=== PATIENT | male | born 1930 | race Caucasian/White ===

== ENCOUNTER 2016-10-22 14:01 | Outpatient (CLI) | payer MEDICARE | END 2016-10-22 14:02 | disposition home or self-care (01) | DX: Z79.01 Long term (current) use of anticoagulants (principal); I72.4 Aneurysm of artery of lower extremity ==

== ENCOUNTER 2016-11-19 13:33 | Outpatient (CLI) | payer MEDICARE | END 2016-11-19 13:34 | disposition home or self-care (01) | DX: I72.4 Aneurysm of artery of lower extremity (principal); Z79.01 Long term (current) use of anticoagulants ==

== ENCOUNTER 2016-12-17 14:00 | Outpatient (CLI) | payer MEDICARE | END 2016-12-17 14:01 | disposition home or self-care (01) | DX: I72.4 Aneurysm of artery of lower extremity (principal); Z79.01 Long term (current) use of anticoagulants ==

== ENCOUNTER 2017-01-14 14:27 | Outpatient (CLI) | payer MEDICARE | END 2017-01-14 14:28 | DX: I72.4 Aneurysm of artery of lower extremity (principal); Z79.01 Long term (current) use of anticoagulants ==

== ENCOUNTER 2017-01-25 17:10 | Outpatient (CLI) | payer MEDICARE | END 2017-01-25 17:11 | disposition EMS.NT | DX: Z03.89 Encounter for observation for other suspected diseases and conditions ruled out (principal); W05.0XXA Fall from non-moving wheelchair, initial encounter; Y92.009 Unspecified place in unspecified non-institutional (private) residence as the place of occurrence of the external cause ==

== ENCOUNTER 2017-02-11 08:00 | Outpatient (CLI) | payer MEDICARE | END 2017-02-11 08:01 | DX: E11.9 Type 2 diabetes mellitus without complications (principal); Z79.01 Long term (current) use of anticoagulants; I72.4 Aneurysm of artery of lower extremity ==

== ENCOUNTER 2017-03-11 14:03 | Outpatient (CLI) | payer MEDICARE | END 2017-03-11 14:04 | disposition home or self-care (01) | LOC: LAB.F 14:03 | PROVIDERS: ATTEND Internal Medicine | DX: I72.4 Aneurysm of artery of lower extremity (principal); Z79.01 Long term (current) use of anticoagulants | CPT/HCPCS: 85610 ==

== ENCOUNTER 2017-03-18 11:00 | Outpatient (CLI) | payer MEDICARE | END 2017-03-18 11:01 | disposition home or self-care (01) | LOC: LAB.F 11:00 | PROVIDERS: ATTEND Internal Medicine | DX: I72.4 Aneurysm of artery of lower extremity (principal) | CPT/HCPCS: 85610 ==

== ENCOUNTER 2017-04-08 13:31 | Outpatient (CLI) | payer MEDICARE | END 2017-04-08 13:32 | disposition home or self-care (01) | LOC: LAB.F 13:31 | PROVIDERS: ATTEND Internal Medicine | DX: I72.4 Aneurysm of artery of lower extremity (principal) | CPT/HCPCS: 85610 ==

== ENCOUNTER 2017-04-22 13:55 | Outpatient (CLI) | payer MEDICARE ==
[2017-04-22 18:16] LABS: PT - PROTHROMBIN TIME 55.4 secs (9.9-12.6)
[2017-04-22 18:26] LABS: INR 4.8 (0.8-1.2)
== END 2017-04-22 13:56 | disposition home or self-care (01) ==
LOC: LAB.F 13:55
PROVIDERS: ATTEND Internal Medicine
DX: I72.4 Aneurysm of artery of lower extremity (principal)
CPT/HCPCS: 36415; 85610

== ENCOUNTER 2017-04-29 09:05 | Outpatient (CLI) | payer MEDICARE | END 2017-04-29 09:06 | disposition home or self-care (01) | LOC: LAB.F 09:05 | PROVIDERS: ATTEND Internal Medicine | DX: I72.4 Aneurysm of artery of lower extremity (principal) | CPT/HCPCS: 85610 ==

== ENCOUNTER 2017-05-06 09:52 | Outpatient (CLI) | payer MEDICARE | END 2017-05-06 09:53 | disposition home or self-care (01) | LOC: LAB.F 09:52 | PROVIDERS: ATTEND Internal Medicine | DX: I72.4 Aneurysm of artery of lower extremity (principal); Z79.01 Long term (current) use of anticoagulants | CPT/HCPCS: 85610 ==

== ENCOUNTER 2017-05-21 13:22 | Outpatient (CLI) | payer MEDICARE | END 2017-05-21 13:23 | disposition home or self-care (01) | LOC: LAB.F 13:22 | PROVIDERS: ATTEND Internal Medicine | DX: I73.9 Peripheral vascular disease, unspecified (principal); I72.4 Aneurysm of artery of lower extremity; Z79.01 Long term (current) use of anticoagulants | CPT/HCPCS: 85610 ==

== ENCOUNTER 2017-06-15 11:25 | Outpatient (CLI) | payer MEDICARE | END 2017-06-15 11:26 | disposition home or self-care (01) | LOC: LAB.S 11:25 | PROVIDERS: ATTEND Internal Medicine | DX: I73.9 Peripheral vascular disease, unspecified (principal) | CPT/HCPCS: 85610 ==

== ENCOUNTER 2017-06-29 11:25 | Outpatient (CLI) | payer MEDICARE | END 2017-06-29 11:26 | disposition home or self-care (01) | LOC: LAB.R 11:25 | PROVIDERS: ATTEND Internal Medicine | DX: I73.9 Peripheral vascular disease, unspecified (principal); Z79.01 Long term (current) use of anticoagulants; I72.4 Aneurysm of artery of lower extremity | CPT/HCPCS: 85610 ==

== ENCOUNTER 2017-07-13 10:13 | Outpatient (CLI) | payer MEDICARE | END 2017-07-13 10:14 | disposition home or self-care (01) | LOC: LAB.S 10:13 | PROVIDERS: ATTEND Internal Medicine | DX: I73.9 Peripheral vascular disease, unspecified (principal); Z79.01 Long term (current) use of anticoagulants; I72.4 Aneurysm of artery of lower extremity | CPT/HCPCS: 85610 ==

== ENCOUNTER 2017-08-10 10:54 | Outpatient (CLI) | payer MEDICARE | END 2017-08-10 10:55 | disposition home or self-care (01) | LOC: LAB.S 10:54 | PROVIDERS: ATTEND Internal Medicine | DX: I73.9 Peripheral vascular disease, unspecified (principal); Z79.01 Long term (current) use of anticoagulants; I72.4 Aneurysm of artery of lower extremity | CPT/HCPCS: 85610 ==

== ENCOUNTER 2017-08-31 10:57 | Outpatient (CLI) | payer MEDICARE | END 2017-08-31 10:58 | LOC: LAB.S 10:57 | PROVIDERS: ATTEND Internal Medicine | DX: I73.9 Peripheral vascular disease, unspecified (principal); Z79.01 Long term (current) use of anticoagulants; I72.4 Aneurysm of artery of lower extremity | CPT/HCPCS: 85610 ==

== ENCOUNTER 2017-09-01 10:51 | Outpatient (CLI) | payer MEDICARE | END 2017-09-01 10:52 | disposition critical access hospital (66) | LOC: EMS 10:51 | PROVIDERS: ATTEND Surgery | DX: R53.1 Weakness (principal) | CPT/HCPCS: A0425; A0427 ==

== ENCOUNTER 2017-09-01 11:30 | Inpatient (IN) | payer MEDICARE ==
[2017-09-01 12:28] LABS: BASOPHILS % (AUTO) 0.6 %; EOSINOPHILS % (AUTO) 0.4 %; HGB - HEMOGLOBIN 8.7 g/dL (14.0-18.0); LYMPHOCYTES # (AUTO) 0.9 10^3/uL (1.5-3.5); LYMPHOCYTES % (AUTO) 12.6 %; MEAN CORPUSCULAR HEMOGLOBIN 25.7 pg (27.0-31.0); MEAN CORPUSCULAR HGB CONC 31.2 g/dL (32.0-36.0); MEAN CORPUSCULAR VOLUME 82.4 fL (80.0-94.0); MEAN PLATELET VOLUME 7.6 fL (7.4-11.4); MONOCYTES # (AUTO) 0.4 10^3/uL (0.0-1.0); MONOCYTES % (AUTO) 6.1 %; NEUTROPHILS # (AUTO) 5.5 10^3/uL (1.5-6.6); NEUTROPHILS % (AUTO) 80.3 %; RED BLOOD COUNT 3.39 10^6/uL (4.70-6.10); RED CELL DISTRIBUTION WIDTH 16.2 % (12.0-15.0); UNCORRECTED WHITE BLOOD COUNT 6.9 x10^3/uL; WHITE BLOOD COUNT 6.9 x10^3/uL (4.8-10.8)
[2017-09-01 12:37] LABS: ALBUMIN/GLOBULIN RATIO 1.1 (1.0-2.2); BILIRUBIN,TOTAL 0.3 mg/dL (0.2-1.0); CALCIUM 9.1 mg/dL (8.5-10.3); CREATININE 1.3 mg/dL (0.6-1.2); POTASSIUM 5.1 mmol/L (3.5-5.0); TOTAL PROTEIN 6.6 g/dL (6.7-8.2)
--- NOTE | 2017-09-01 13:06 | ED Physician Documentation ---
History of Present Illness - Stated complaint Stated Complaint: WEAKNESS - Chief complaint Chief Complaint: Neuro - Additonal information Additional information: hx from pt and mostly his 86 male hx CAD s/p CABP PVD s/p erika fem pop stents and toe amputations on coumadin usually unable to ambulate and uses an electric scooter but is up and active every day gradually over weeks but more acutely X last 5 days he has become several weak unable to even sit up unassisted also very soa with rapid breathing no fever + cough no MCDANIELS CP AP INR has been > 4 for 2 weeks now no bloody black BM dec urine output and urine has been cloudy POLST with pt DNR limited Review of Systems Constitutional: denies: Fever, Chills Throat: denies: Sore throat Cardiac: denies: Chest pain / pressure Respiratory: reports: Dyspnea, Cough GI: denies: Abdominal Pain PD PAST MEDICAL HISTORY - Past Medical History Past Medical History: Yes Cardiovascular: Hypertension, Coronary artery disease, Atrial fibrillation Endocrine/Autoimmune: Type 2 diabetes - Past Surgical History Past Surgical History: Yes Cardiovascular: CABG - Present Medications Home Medications: Ambulatory Orders Medication Instructions Recorded Confirmed Atorvastatin [Lipitor] 10 mg PO QPM 10/07/14 09/01/17 Docusate Sodium 250Mg Capsule 250 mg PO BID 10/07/14 09/01/17 [Colace] Losartan [Cozaar] 25 mg PO DAILY 10/07/14 09/01/17 Metformin HCl 500 mg PO QDBREAKFAST 10/07/14 09/01/17 Metoprolol Tartrate 25 mg PO BID 10/07/14 09/01/17 Morphine Sulfate [Morphine Sulfate 30 mg PO BID 10/07/14 09/01/17 Cr] Omeprazole 20 mg PO DAILY 10/07/14 09/01/17 Sulfamethoxazole/Trimethoprim 1 tab PO BID 10/07/14 09/01/17 [Bactrim Ds Tablet] Warfarin [Coumadin] 5 mg PO MOWEFR 10/07/14 09/01/17 Aspirin EC [Ecotrin] 325 mg PO DAILY 09/01/17 09/01/17 Multivitamin [Multivitamins] 1 each PO DAILY 09/01/17 09/01/17 Multivitamin [Theragran] 1 tab PO DAILY 09/01/17 09/01/17 Senna [Senokot] 17.2 mg PO DAILY 09/01/17 09/01/17 Warfarin [Coumadin] 2.5 mg PO SUTUTHSA 09/01/17 09/01/17 - Allergies Allergies/Adverse Reactions: Allergies Allergy/AdvReac Type Severity Reaction Status Date / Time hydrocodone Allergy Rash Verified 09/01/17 11:39 lisinopril Allergy Unknown Verified 09/01/17 11:39 oxycodone Allergy Rash Verified 09/01/17 11:39 Penicillins Allergy Rash Verified 09/01/17 11:39 - Social History Does the pt smoke?: No Smoking Status: Never smoker Does the pt drink ETOH?: No - POLST Patient has POLST: Yes PD ED PE NORMAL - Vitals Vital signs reviewed: Yes (low temp and sat) - General General: Alert and oriented X 3 - HEENT HEENT: PERRL, Other (pale) - Neck Neck: Supple, no meningeal sign - Cardiac Cardiac: RRR, Other (CABG scar) - Respiratory Respiratory: No respiratory distress, Other (shallow rapid) - Abdomen Abdomen: Soft, Non tender - Rectal Rectal: Other (brown stool very faintly heme +) - Derm Derm: Other (pale) - Extremities Extremities: No edema, Other (muliple toe amp, feet discolored but warm) - Neuro Neuro: Alert and oriented X 3 Results - Vitals Vitals: Vital Signs - 24 hr 09/01/17 09/01/17 09/01/17 11:37 12:01 12:45 Temperature 35.7 C L Heart Rate 85 77 78 Respiratory 15 16 Rate Blood Pressure 111/66 101/64 126/74 O2 Saturation 94 93 96 09/01/17 09/01/17 09/01/17 13:01 13:19 14:21 Temperature 35.6 C L 36.2 C L 36.0 C L Heart Rate 88 78 77 Respiratory 20 22 20 Rate Blood Pressure 102/73 101/63 102/70 O2 Saturation 87 L 100 99 09/01/17 09/01/17 15:25 15:51 Temperature Heart Rate 73 75 Respiratory 20 20 Rate Blood Pressure 106/82 H 100/68 O2 Saturation 95 Oxygen O2 Source Room air - EKG (time done) 1648 Rate: Rate (enter#) (82) Rhythm: NSR Intervals: RBBB Ischemia: ST depression (inf and lat suggestive of ischemia) - Labs Labs: Laboratory Tests 09/01/17 09/01/17 09/01/17 12:15 12:15 12:15 WBC 6.9 RBC 3.39 L Hgb 8.7 L Hct 28.0 L MCV 82.4 MCH 25.7 L MCHC 31.2 L RDW 16.2 H Plt Count 231 MPV 7.6 Neut # 5.5 Lymph # 0.9 L [place] # 0.4 Eos # 0.0 Baso # 0.0 Absolute Nucleated RBC 0.00 Nucleated RBC % 0.0 PT INR Sodium 134 L Potassium 5.1 H Chloride 98 L Carbon Dioxide 25 Anion Gap 11.0 BUN 31 H Creatinine 1.3 H Estimated GFR (MDRD) 52 L Glucose 151 H Lactic Acid Calcium 9.1 Total Bilirubin 0.3 AST 18 ALT 11 Alkaline Phosphatase 69 Troponin I 0.13 Total Protein 6.6 L Albumin 3.5 Globulin 3.1 Albumin/Globulin Ratio 1.1 Lipase 14 L Urine Color Urine Clarity Urine pH Ur Specific [place] Urine Protein Urine Glucose (UA) Urine Ketones Urine Occult Blood Urine Nitrite Urine Bilirubin Urine Urobilinogen Ur Leukocyte Esterase Urine RBC Urine WBC Ur Squamous Epith Cells Urine Crystals Amorphous Sediment Urine Bacteria Ur Microscopic Review Urine Culture Comments Blood Type Antibody Screen 09/01/17 09/01/17 09/01/17 12:15 13:45 13:45 WBC RBC Hgb Hct MCV MCH MCHC RDW Plt Count MPV Neut # Lymph # [place] # Eos # Baso # Absolute Nucleated RBC Nucleated RBC % PT 26.1 H INR 2.4 H Sodium Potassium Chloride Carbon Dioxide Anion Gap BUN Creatinine Estimated GFR (MDRD) Glucose Lactic Acid 1.2 Calcium Total Bilirubin AST ALT Alkaline Phosphatase Troponin I Total Protein Albumin Globulin Albumin/Globulin Ratio Lipase Urine Color Urine Clarity Urine pH Ur Specific [place] Urine Protein Urine Glucose (UA) Urine Ketones Urine Occult Blood Urine Nitrite Urine Bilirubin Urine Urobilinogen Ur Leukocyte Esterase Urine RBC Urine WBC Ur Squamous Epith Cells Urine Crystals Amorphous Sediment Urine Bacteria Ur Microscopic Review Urine Culture Comments Blood Type O POSITIVE Antibody Screen NEGATIVE 09/01/17 09/01/17 14:00 17:00 WBC RBC Hgb Hct MCV MCH MCHC RDW Plt Count MPV Neut # Lymph # [place] # Eos # Baso # Absolute Nucleated RBC Nucleated RBC % PT INR Sodium Potassium Chloride Carbon Dioxide Anion Gap BUN Creatinine Estimated GFR (MDRD) Glucose Lactic Acid Calcium Total Bilirubin AST ALT Alkaline Phosphatase Troponin I 0.14 Total Protein Albumin Globulin Albumin/Globulin Ratio Lipase Urine Color YELLOW Urine Clarity CLOUDY Urine pH 6.0 Ur Specific [place] >=1.030 H Urine Protein 30 H Urine Glucose (UA) NEGATIVE Urine Ketones NEGATIVE Urine Occult Blood NEGATIVE Urine Nitrite NEGATIVE Urine Bilirubin NEGATIVE Urine Urobilinogen 0.2 (NORMAL) Ur Leukocyte Esterase NEGATIVE Urine RBC None Seen Urine WBC 0-3 Ur Squamous Epith Cells FEW Squamous Urine Crystals >50 Ammonium Urate Amorphous Sediment Moderate Urine Bacteria Few Ur Microscopic Review INDICATED Urine Culture Comments NOT INDICATED Blood Type Antibody Screen PD MEDICAL DECISION MAKING - ED course ED course: elderly male with known CAD ot ER with weakness and soa and is anemic (new from 2016) and borderline trop and L pna on CXR, renal insuff not new will start ab, rectal exam, admit spoke to hospitalist at 420 labs etc ordered prior to my shift - trop was ordered but EKG was not done - prehospital EKG most c/w RBBB and slight ST depr inf lat - ordered EKG and it is abn with more sig inf lat ST depression than prehospital and no old EKG in EMR to compare - pt not having CP and SOA better now - ordered stat rpt trop - BP already low so no BB or nitro, on couamdin and anemic so no asa or heparin - rpt trop wtill WNL Departure - Departure Disposition: 66 [facility] DC/Xfer Clinical Impression: Elevated INR, Renal insufficiency, Abnormal EKG Pneumonia Qualifiers: Pneumonia type: due to unspecified organism Laterality: left Lung location: unspecified part of lung Qualified Code(s): J18.9 - Pneumonia, unspecified organism Anemia Qualifiers: Anemia type: unspecified type Qualified Code(s): D64.9 - Anemia, unspecified GI bleed Qualifiers: GI bleed type/associated pathology: unspecified gastrointestinal hemorrhage type Qualified Code(s): K92.2 - Gastrointestinal hemorrhage, unspecified Condition: Fair Discharge Date/Time: 09/01/17 17:49
--- NOTE | 2017-09-01 13:18 | XRAY Preliminary Report ---
Exam: XR CHEST 2 VIEW PA/LAT IMPRESSION: Technically suboptimal evaluation. Left pulmonary opacities and probable small pleural ef fusion. [facility] SITE ID: [id number]
--- NOTE | 2017-09-01 13:20 | XRAY Report ---
EXAM: CHEST RADIOGRAPHY EXAM DATE: 09/01/2017 12:48 PM. CLINICAL HISTORY: Weak and soa. COMPARISON: None. TECHNIQUE: 2 views. FINDINGS: Lungs/Pleura: Technically suboptimal evaluation. There is mild elevation of the left hemidiaphragm. P robable small left pleural effusion and associated basilar opacity. Left perihilar opacities. Bluntin g of the right costophrenic angle; no definite focal consolidation. No pneumothorax is demonstrated. Mediastinum: The cardiac silhouette is partially obscured but there is no gross enlargement. Other: Status post median sternotomy. IMPRESSION: Technically suboptimal evaluation. Left pulmonary opacities and probable small pleural ef fusion. [facility] Referring Provider Line: [phone] SITE ID: [id number]
[2017-09-01 14:06] LABS: INR 2.4 (0.8-1.2); PT - PROTHROMBIN TIME 26.1 secs (9.9-12.6)
[2017-09-01 14:12] LABS: BILIRUBIN,URINE NEGATIVE (NEGATIVE)
[2017-09-01 14:16] LABS: UA w/ MICROSCOPIC CHARGE YES
[2017-09-01 14:30] LABS: UR CULTURE IF IND NOT INDICATED; WBC,URINE 0-3 /HPF (0-3)
[2017-09-01] MEDS ORDERED: cefTRIAXone 1 GM in SODIUM CHLORIDE 0.9% MINIBAG 100 ML IV STA (14:44)
[2017-09-01] MEDS ORDERED: AZITHROMYCIN INJ 500 MG in SODIUM CHLORIDE 0.9% 250 ML IV STA (14:44)
[2017-09-01] MEDS ORDERED: cefTRIAXone 1 GM VIAL ONE (15:28)
[2017-09-01] MEDS ORDERED: SODIUM CHLORIDE FLUSH 0.9% 10 ML SYRINGE IVP PRN (18:49)
[2017-09-01] MEDS ORDERED: ZOLPIDEM 5 MG TABLET PO PRN (18:49)
[2017-09-01] MEDS ORDERED: ACETAMINOPHEN 325 MG TABLET PO PRN (18:49)
[2017-09-01] MEDS ORDERED: LACTATED RINGERS 1,000 ML IV SCH (19:00)
[2017-09-01] MEDS: DOCUSATE SODIUM 250 MG CAPSULE PO SCH (21:31)
[2017-09-01] MEDS: SODIUM CHLORIDE FLUSH 0.9% 10 ML SYRINGE IVP SCH (21:31)
[2017-09-01] MEDS: ATORVASTATIN 10 MG TABLET PO SCH (21:31)
[2017-09-01] MEDS: METOPROLOL TARTRATE 50 MG TABLET PO SCH (21:31)
[2017-09-01] MEDS: FAMOTIDINE 20 MG TABLET PO SCH (21:31)
[2017-09-02] MEDS ORDERED: ONDANSETRON 4 MG/2 ML VIAL IVP PRN (02:58)
[2017-09-02 03:14] LABS: BASOPHILS % (AUTO) 0.6 %; EOSINOPHILS # (AUTO) 0.1 10^3/uL (0.0-0.7); EOSINOPHILS % (AUTO) 1.3 %; HCT - HEMATOCRIT 27.5 % (42.0-52.0); HGB - HEMOGLOBIN 8.9 g/dL (14.0-18.0); LYMPHOCYTES % (AUTO) 12.5 %; MEAN CORPUSCULAR HEMOGLOBIN 26.3 pg (27.0-31.0); MEAN CORPUSCULAR HGB CONC 32.3 g/dL (32.0-36.0); MEAN CORPUSCULAR VOLUME 81.5 fL (80.0-94.0); MEAN PLATELET VOLUME 7.8 fL (7.4-11.4); MONOCYTES # (AUTO) 0.6 10^3/uL (0.0-1.0); MONOCYTES % (AUTO) 7.1 %; NEUTROPHILS # (AUTO) 6.3 10^3/uL (1.5-6.6); NEUTROPHILS % (AUTO) 78.5 %; RED BLOOD COUNT 3.38 10^6/uL (4.70-6.10); RED CELL DISTRIBUTION WIDTH 16.4 % (12.0-15.0); UNCORRECTED WHITE BLOOD COUNT 8.1 x10^3/uL; WHITE BLOOD COUNT 8.1 x10^3/uL (4.8-10.8)
[2017-09-02 03:20] LABS: INR 2.1 (0.8-1.2); PT - PROTHROMBIN TIME 22.9 secs (9.9-12.6)
[2017-09-02 03:27] LABS: CALCIUM 8.9 mg/dL (8.5-10.3); CREATININE 1.4 mg/dL (0.6-1.2); MAGNESIUM 2.1 mg/dL (1.7-2.8); POTASSIUM 4.8 mmol/L (3.5-5.0)
--- NOTE | 2017-09-02 07:29 | XRAY Preliminary Report ---
Exam: XR CHEST 1 VIEW IMPRESSION: Findings are most suggestive of congestive heart failure with pulmonary edema and small p leural effusions. [facility] SITE ID: [id number]
--- NOTE | 2017-09-02 07:31 | XRAY Report ---
EXAM: CHEST RADIOGRAPHY EXAM DATE: 09/02/2017 07:17 AM. CLINICAL HISTORY: Sudden sob and cyanosis. COMPARISON: 09/01/2017. TECHNIQUE: 1 view. FINDINGS: Lungs/Pleura: Increased central reticular opacities and bibasilar hazy opacities compared to yesterda y. No pneumothorax. Mediastinum: The cardiac silhouette is mostly obscured. No evidence of gross change from prior. Other: Status post median sternotomy. IMPRESSION: Findings are most suggestive of congestive heart failure with pulmonary edema and small p leural effusions. [facility] Referring Provider Line: [phone] SITE ID: [id number]
[2017-09-02] MEDS: SODIUM CHLORIDE FLUSH 0.9% 10 ML SYRINGE IVP SCH ×3 (07:39→21:18)
--- NOTE | 2017-09-02 08:13 | CT Preliminary Report ---
Exam: CT HEAD W/O STROKE PROTOCOL IMPRESSION: Generalized age-related cortical atrophic changes without evidence of acute intracranial abnormality. [facility] SITE ID: [id number]
--- NOTE | 2017-09-02 08:15 | CT Report ---
EXAM: CT HEAD EXAM DATE: 09/02/2017 08:03 AM. CLINICAL HISTORY: Sudden aloc, cyanosis, on coumadin (increased risk of intracranial hemorrhage). COMPARISON: None. TECHNIQUE: Multiaxial CT images were obtained from the foramen magnum to the vertex. IV contrast: Non e. Reformats: Coronal. In accordance with CT protocol optimization, one or more of the following dose reduction techniques w ere utilized for this exam: automated exposure control, adjustment of mA and/or KV based on patient s ize, or use of iterative reconstructive technique. FINDINGS: Parenchyma: No intraparenchymal hemorrhage. No evidence of mass, midline shift, or CT findings of acu te infarction. Beverly-white differentiation is distinct. Diffuse chronic microangiopathic white matter changes are evident. Extraaxial Spaces: Normal for age. No subdural or epidural collections identified. Ventricles: The ventricles and cortical sulci are enlarged, consistent with age-related tissue loss. Sinuses and orbits: Imaged paranasal sinuses, orbits, and mastoids show no significant abnormality. Bones: No evidence of fracture or calvarial defect. Other: None. IMPRESSION: Generalized age-related cortical atrophic changes without evidence of acute intracranial abnormality. Critical Test: Results conveyed to Dr. Pickens by telephone at 0810 hours on 09/02/2017 in accordan ce with stroke protocol. [facility] Referring Provider Line: [phone] SITE ID: [id number]
[2017-09-02 08:38] LABS: BASOPHILS # (AUTO) 0.1 10^3/uL (0.0-0.1); BASOPHILS % (AUTO) 0.6 %; EOSINOPHILS # (AUTO) 0.1 10^3/uL (0.0-0.7); EOSINOPHILS % (AUTO) 0.6 %; HCT - HEMATOCRIT 29.1 % (42.0-52.0); HGB - HEMOGLOBIN 9.3 g/dL (14.0-18.0); LYMPHOCYTES # (AUTO) 1.2 10^3/uL (1.5-3.5); LYMPHOCYTES % (AUTO) 12.4 %; MEAN CORPUSCULAR HEMOGLOBIN 26.2 pg (27.0-31.0); MEAN CORPUSCULAR VOLUME 81.9 fL (80.0-94.0); MEAN PLATELET VOLUME 7.1 fL (7.4-11.4); MONOCYTES # (AUTO) 0.6 10^3/uL (0.0-1.0); MONOCYTES % (AUTO) 6.4 %; NEUTROPHILS # (AUTO) 7.5 10^3/uL (1.5-6.6); RED BLOOD COUNT 3.56 10^6/uL (4.70-6.10); RED CELL DISTRIBUTION WIDTH 16.4 % (12.0-15.0); UNCORRECTED WHITE BLOOD COUNT 9.4 x10^3/uL; WHITE BLOOD COUNT 9.4 x10^3/uL (4.8-10.8)
[2017-09-02 08:56] LABS: CREATININE 1.5 mg/dL (0.6-1.2); POTASSIUM 5.4 mmol/L (3.5-5.0)
[2017-09-02] MEDS ORDERED: SENNA 8.6 MG TABLET PO SCH (09:00)
[2017-09-02] MEDS ORDERED: cefTRIAXone 1 GM VIAL IVP SCH (09:00)
[2017-09-02] MEDS: DOCUSATE SODIUM 250 MG CAPSULE PO SCH ×2 (10:26→21:23)
[2017-09-02] MEDS: metFORMIN 500 MG TABLET PO SCH (10:27)
[2017-09-02] MEDS: MULTIVITAMIN TABLET PO SCH (10:27)
[2017-09-02] MEDS: ASPIRIN EC 325 MG TABLET PO SCH (10:27)
[2017-09-02] MEDS: FAMOTIDINE 20 MG TABLET PO SCH ×2 (10:28→21:23)
[2017-09-02] MEDS: POLYETHYLENE GLYCOL 3350 17 GM PACKET PO SCH (10:28)
[2017-09-02] MEDS: SENNA 8.6 MG TABLET PO SCH (10:28)
[2017-09-02] MEDS: METOPROLOL TARTRATE 50 MG TABLET PO SCH (10:29)
[2017-09-02] MEDS ORDERED: ZINC OXIDE 20% OINT 28.35 GM TUBE TOP ONE (10:44)
[2017-09-02] MEDS: SODIUM CHLORIDE 0.9% 1,000 ML IV SCH ×2 (12:43→19:14)
[2017-09-02] MEDS: cefTRIAXone 1 GM in SODIUM CHLORIDE 0.9% MINIBAG 100 ML IV SCH (14:50)
[2017-09-02] MEDS: WARFARIN 5 MG TABLET PO SCH (14:50)
--- NOTE | 2017-09-02 17:47 | PROVIDER PROGRESS NOTE ---
Assessment/Plan - Problem List (1) CAP (community acquired pneumonia) Qualifiers: Laterality: left Assessment/Plan: Continue with iv Ceftriaxone, a 7-10 day course of antibiotics is planned (2) Dehydration Assessment/Plan: The patient refused the iv fluids to be started upon admission. I explained to him yesterday evening, that iv hydration is not considered an aggressive management (which he does not desire, per his POLST), but he still refused it, stating he "did not want to mix iv and oral treatment". Overnight, he would not allow RN to start the iv hydration, even when she asked him for permission several times. I spoke to and son about this today, and they urge us to treat the dehydration. Will start iv fluids now. They also report that the patient likes [place] soda. I will allow this intake ad aria, since patient is cachectic and needs some calories as well. Follow lytes and BUN/creat. (3) ANDREW (acute kidney injury) Assessment/Plan: Worse BUN/creat since admission which is partly due to patient's refusal to get iv hydration. Today I will order a start of hydration and follow labs and urine output (4) Anemia Assessment/Plan: No BMs since admission. In ER the rectal exam had mildly Heme + stool. Will check B12, folate and Fe studies and replace if needed. (5) Altered mental status Assessment/Plan: CT of head showed a senescent brain but no acute stroke or bleed or mass effect. I suspect he may be confused and delusional due to infection and dehydration. Continue plan as above and follow neuro exam. (6) PVD (peripheral vascular disease) Assessment/Plan: His mottled feet, when pt was confused, suggest hypoperfusion. Despite no marked hypotension, hypoperfusion is suspected, likely due to dehydration. I will stop any antihypertensives that are ordered for CAD and PVD care, that are not absolutely necessary - Current Meds Current Meds: Current Medications Generic Name Dose Route Start Last Admin Trade Name Freq PRN Reason Stop Dose Admin Acetaminophen 650 mg 09/01/17 18:49 09/02/17 03:09 Tylenol PO 650 mg Q4HR PRN Administration Pain 1 to 4 Aspirin 325 mg 09/02/17 09:00 09/02/17 10:27 Ecotrin PO 325 mg DAILY GAGANDEEP Administration Atorvastatin Calcium 10 mg 09/01/17 21:00 09/01/17 21:31 Lipitor PO 10 mg QPM GAGANDEEP Administration Docusate Sodium 250 mg 09/01/17 21:00 09/02/17 10:26 Colace 250mg Capsule PO 250 mg BID GAGANDEEP Administration Famotidine 20 mg 09/01/17 21:00 09/02/17 10:28 Pepcid PO 20 mg BID GAGANDEEP Administration Ceftriaxone Sodium 1 gm/ 100 mls @ 200 mls/hr 09/02/17 15:00 09/02/17 15:54 Sodium Chloride IV Infused Q24H GAGANDEEP Infusion Sodium Chloride 1,000 mls @ 150 mls/hr 09/02/17 13:00 09/02/17 15:50 Normal Saline 0.9% IV 150 mls/hr .Q6H40M GAGANDEEP Infusion Metformin HCl 500 mg 09/02/17 08:00 09/02/17 10:27 Glucophage PO 500 mg QDBREAKFAST GAGANDEEP Administration Metoprolol Tartrate 25 mg 09/01/17 21:00 09/02/17 10:29 Lopressor PO 25 mg BID GAGANDEEP Administration Multivitamins 1 tab 09/02/17 09:00 09/02/17 10:27 Theragran PO 1 tab DAILY GAGANDEEP Administration Ondansetron HCl 4 mg 09/02/17 02:58 09/02/17 03:33 Zofran Inj IVP 4 mg Q6HR PRN Administration Nausea / Vomiting Polyethylene Glycol 17 gm 09/02/17 09:00 09/02/17 10:28 Miralax PO 17 gm DAILY GAGANDEEP Administration Senna 17.2 mg 09/02/17 09:00 09/02/17 10:28 Senokot PO 17.2 mg DAILY GAGANDEEP Administration Sodium Chloride 10 ml 09/01/17 22:00 09/02/17 14:24 Normal Saline Flush 0.9% IVP Not Given Q8HR GAGANDEEP Warfarin Sodium 5 mg 09/02/17 14:00 09/02/17 14:50 Coumadin PO 5 mg MoWeFr@1400 GAGANDEEP Administration - Lab Result Fish Bone Diagrams: 09/03/17 06:19 09/03/17 06:19 - Additional Planning My Orders: My Active Orders 09/01/17 18:49 Activity Orders [RC] Routine IO [RC] IOSHIFT Initiate Bowel Care Protocol [RC] .protocol Initiate Flu Vaccine Screening [RC] ONCE Initiate Line Care Protocol [RC] .protocol Initiate Personal Care Protoco [RC] .protocol Initiate Pneumonia Vaccine Scr [RC] ONCE Oxygen Therapy [RC] .PRN Vital Signs [RC] Q8HR Acetaminophen [Tylenol] 650 mg PO Q4HR PRN Sodium Chloride Flush 0.9% [Normal Saline Flush 0.9%] 10 ml IVP PRN PRN Zolpidem [Ambien] 5 mg PO QPM PRN Code Status [OTHERS] Routine Condition of Patient [OTHERS] Routine DVT Prophylaxis [OTHERS] Routine 09/01/17 18:51 IV Insert [RC] .ONCE 09/01/17 18:52 Telemetry- [RC] Routine 09/01/17 21:00 Atorvastatin [Lipitor] 10 mg PO QPM Docusate Sodium 250Mg Capsule [Colace 250Mg Capsule] 250 mg PO BID Famotidine [Pepcid] 20 mg PO BID Metoprolol Tartrate [Lopressor] 25 mg PO BID 09/01/17 22:00 Sodium Chloride Flush 0.9% [Normal Saline Flush 0.9%] 10 ml IVP Q8HR 09/02/17 08:00 metFORMIN [Glucophage] 500 mg PO QDBREAKFAST 09/02/17 09:00 Aspirin EC [Ecotrin] 325 mg PO DAILY Multivitamin [Theragran] 1 tab PO DAILY Polyethylene Glycol 3350 [Miralax] 17 gm PO DAILY Senna [Senokot] 17.2 mg PO DAILY 09/02/17 12:35 Miscellaenous Nursing Order [RC] QSHIFT 09/02/17 13:00 Sodium Chloride 0.9% [Normal Saline 0.9%] 1,000 ml IV 150 mls/hr 09/02/17 14:00 Warfarin [Coumadin] 5 mg PO MoWeFr@1400 09/02/17 15:00 cefTRIAXone [Rocephin] 1 gm Sodium Chloride 0.9% Minibag [Normal Saline 0.9% Minibag] 100 ml IV Q24H 09/03/17 05:00 BMP - BASIC METABOLIC PANEL [CHEM] DAILYLAB CBC - COMP BLD CT W/AUTO DIFF [HEME] DAILYLAB 09/03/17 14:00 Warfarin [Coumadin] 2.5 mg PO SuTuThSa@1400 09/04/17 05:00 BMP - BASIC METABOLIC PANEL [CHEM] DAILYLAB CBC - COMP BLD CT W/AUTO DIFF [HEME] DAILYLAB 09/05/17 05:00 BMP - BASIC METABOLIC PANEL [CHEM] DAILYLAB CBC - COMP BLD CT W/AUTO DIFF [HEME] DAILYLAB Subjective - Subjective Patient Reports: Resting Comfortably Nursing Reports: Other (This am Pt developed confusion, was staring, feel were cool and mottled and he was seen by Youth Teacher who ordered labs, EKG, imaging including CT head, stroke protocol) Objective Vital Signs: Vital Signs - 24 hr 09/01/17 09/01/17 09/01/17 17:46 18:26 21:09 Temperature 36.3 C L 36.2 C L Heart Rate 86 Heart Rate [ 81 84 Brachial] Respiratory 22 16 16 Rate Blood Pressure 102/63 Blood Pressure 101/61 102/59 L [Right Brachial artery] O2 Saturation 96 95 97 09/01/17 09/02/17 09/02/17 21:31 00:37 09:30 Temperature 36.4 C L 36.6 C Heart Rate Heart Rate [ 80 89 Brachial] Respiratory 16 18 Rate Blood Pressure 102/59 L Blood Pressure 113/59 L 101/58 L [Right Brachial artery] O2 Saturation 96 98 Oxygen O2 Source Nasal cannula I&O (Last 24 Hrs): Intake and Output Totals x24h 08/31/17 09/01/17 09/02/17 23:59 23:59 23:59 Intake Total 400 1280 Output Total 200 Balance 400 1080 General: Other (Sleeping and difficult to arouse (is OUZINKIE, per family)) HEENT: Other (Dry mucosa) Neck: No JVD Neuro: Non Focal Cardiovascular: Regular rate Respiratory: No respiratory distress Abdomen: Soft Extremities: No edema, Other (Tenting of skin present) - Results Results: Laboratory Results WBC 9.4 x10^3/uL (4.8-10.8) 09/02/17 08:35 RBC 3.56 10^6/uL (4.70-6.10) L 09/02/17 08:35 Hgb 9.3 g/dL (14.0-18.0) L 09/02/17 08:35 Hct 29.1 % (42.0-52.0) L 09/02/17 08:35 MCV 81.9 fL (80.0-94.0) 09/02/17 08:35 MCH 26.2 pg (27.0-31.0) L 09/02/17 08:35 MCHC 32.0 g/dL (32.0-36.0) 09/02/17 08:35 RDW 16.4 % (12.0-15.0) H 09/02/17 08:35 Plt Count 245 10^3/uL (130-450) 09/02/17 08:35 MPV 7.1 fL (7.4-11.4) L 09/02/17 08:35 Neut # 7.5 10^3/uL (1.5-6.6) H 09/02/17 08:35 Lymph # 1.2 10^3/uL (1.5-3.5) L 09/02/17 08:35 [place] # 0.6 10^3/uL (0.0-1.0) 09/02/17 08:35 Eos # 0.1 10^3/uL (0.0-0.7) 09/02/17 08:35 Baso # 0.1 10^3/uL (0.0-0.1) 09/02/17 08:35 Absolute Nucleated RBC 0.00 x10^3/uL 09/02/17 08:35 Nucleated RBC % 0.0 /100WBC 09/02/17 08:35 PT 22.9 secs (9.9-12.6) H 09/02/17 03:07 INR 2.1 (0.8-1.2) H 09/02/17 03:07 Sodium 131 mmol/L (135-145) L 09/02/17 08:35 Potassium 5.4 mmol/L (3.5-5.0) H 09/02/17 08:35 Chloride 96 mmol/L (101-111) L 09/02/17 08:35 Carbon Dioxide 24 mmol/L (21-32) 09/02/17 08:35 Anion Gap 11.0 (6-13) 09/02/17 08:35 BUN 37 mg/dL (6-20) H 09/02/17 08:35 Creatinine 1.5 mg/dL (0.6-1.2) H 09/02/17 08:35 Estimated GFR (MDRD) 44 (>89) L 09/02/17 08:35 Glucose 138 mg/dL (70-100) H 09/02/17 08:35 Lactic Acid 1.2 mmol/L (0.5-2.2) 09/02/17 08:35 Calcium 9.0 mg/dL (8.5-10.3) 09/02/17 08:35 Magnesium 2.1 mg/dL (1.7-2.8) 09/02/17 03:07 Total Bilirubin 0.3 mg/dL (0.2-1.0) 09/01/17 12:15 AST 18 IU/L (10-42) 09/01/17 12:15 ALT 11 IU/L (10-60) 09/01/17 12:15 Alkaline Phosphatase 69 IU/L (42-121) 09/01/17 12:15 Troponin I 0.17 ng/mL (<0.49) 09/02/17 08:35 Total Protein 6.6 g/dL (6.7-8.2) L 09/01/17 12:15 Albumin 3.5 g/dL (3.2-5.5) 09/01/17 12:15 Globulin 3.1 g/dL (2.1-4.2) 09/01/17 12:15 Albumin/Globulin Ratio 1.1 (1.0-2.2) 09/01/17 12:15 Lipase 14 U/L (22-51) L 09/01/17 12:15 Urine Color YELLOW 09/01/17 14:00 Urine Clarity CLOUDY (CLEAR) 09/01/17 14:00 Urine pH 6.0 PH (5.0-7.5) 09/01/17 14:00 Ur Specific [place] >=1.030 (1.002-1.030) H 09/01/17 14:00 Urine Protein 30 mg/dL (NEGATIVE) H 09/01/17 14:00 Urine Glucose (UA) NEGATIVE mg/dL (NEGATIVE) 09/01/17 14:00 Urine Ketones NEGATIVE mg/dL (NEGATIVE) 09/01/17 14:00 Urine Occult Blood NEGATIVE (NEGATIVE) 09/01/17 14:00 Urine Nitrite NEGATIVE (NEGATIVE) 09/01/17 14:00 Urine Bilirubin NEGATIVE (NEGATIVE) 09/01/17 14:00 Urine Urobilinogen 0.2 (NORMAL) E.U./dL (NORMAL) 09/01/17 14:00 Ur Leukocyte Esterase NEGATIVE (NEGATIVE) 09/01/17 14:00 Urine RBC None Seen /HPF (0-5) 09/01/17 14:00 Urine WBC 0-3 /HPF (0-3) 09/01/17 14:00 Ur Squamous Epith Cells FEW Squamous (<= Few) 09/01/17 14:00 Urine Crystals >50 Ammonium Urate /LPF 09/01/17 14:00 Amorphous Sediment Moderate /LPF 09/01/17 14:00 Urine Bacteria Few /HPF (None Seen) 09/01/17 14:00 Ur Microscopic Review INDICATED 09/01/17 14:00 Urine Culture Comments NOT INDICATED 09/01/17 14:00 Blood Type O POSITIVE 09/01/17 13:45 Antibody Screen NEGATIVE 09/01/17 13:45
[2017-09-02] MEDS: ATORVASTATIN 10 MG TABLET PO SCH (21:23)
[2017-09-02 23:30] LABS: VBG BASE EXCESS -6.8 mmol/L (-2 - +2); VBG OXYGEN SATURATION 68.3 % (60-80); VBG PH 7.218 (7.31-7.41); VBG TOTAL CO2 22.4 mmol/L (24-29)
[2017-09-03] MEDS ORDERED: FUROSEMIDE 20 MG/2 ML VIAL IVP ONE (00:09)
[2017-09-03] MEDS ORDERED: FUROSEMIDE 20 MG/2 ML VIAL IVP STA (00:12)
[2017-09-03] MEDS ORDERED: FUROSEMIDE 20 MG/2 ML VIAL IVP SCH (00:20)
[2017-09-03 00:47] LABS: ABG HCO3 23.3 mmol/L (22.0-26.0); ABG O2 DEVICE OXYMASK; ABG OXYGEN SATURATION 99 % (94-98); ABG PCO2 48 mmHg (34-45); ABG PH 7.31 (7.35-7.45); ABG PO2 143 mmHg (80-100); ABG SATURATION PULSE OXIMETRY% 100 %; ABG SITE OF DRAW RIGHT RADIAL; ABG TCO2 24.7 MMOL/L (21.0-29.0); ALLEN TEST POSITIVE
[2017-09-03] MEDS ORDERED: MIN OIL/DIMETHICON/COCONUT OIL 92 GM TUBE TOP PRN (04:26)
[2017-09-03] MEDS: SODIUM CHLORIDE FLUSH 0.9% 10 ML SYRINGE IVP SCH ×5 (06:22→17:43)
[2017-09-03 06:34] LABS: BASOPHILS % (AUTO) 0.8 %; EOSINOPHILS % (AUTO) 0.6 %; HCT - HEMATOCRIT 26.8 % (42.0-52.0); HGB - HEMOGLOBIN 8.4 g/dL (14.0-18.0); LYMPHOCYTES # (AUTO) 1.2 10^3/uL (1.5-3.5); MEAN CORPUSCULAR HGB CONC 31.3 g/dL (32.0-36.0); MEAN CORPUSCULAR VOLUME 83.1 fL (80.0-94.0); MEAN PLATELET VOLUME 7.9 fL (7.4-11.4); MONOCYTES # (AUTO) 0.5 10^3/uL (0.0-1.0); MONOCYTES % (AUTO) 7.6 %; NEUTROPHILS # (AUTO) 4.8 10^3/uL (1.5-6.6); NUCLEATED RED BLOOD CELLS AUTO 0.1 /100WBC; RED BLOOD COUNT 3.23 10^6/uL (4.70-6.10); RED CELL DISTRIBUTION WIDTH 16.4 % (12.0-15.0); UNCORRECTED WHITE BLOOD COUNT 6.6 x10^3/uL; WHITE BLOOD COUNT 6.6 x10^3/uL (4.8-10.8)
[2017-09-03 06:45] LABS: CALCIUM 8.4 mg/dL (8.5-10.3); CREATININE 1.9 mg/dL (0.6-1.2); POTASSIUM 5.3 mmol/L (3.5-5.0)
--- NOTE | 2017-09-03 07:29 | PROVIDER PROGRESS NOTE ---
Editor Newspaper Note - Editor Newspaper Note Editor Newspaper Note: This note was entered in the incorrect patient account and now brought over to this account. September 02, 2017 06: 5 4 Called to see patient by RN because of sudden slurred speech, and change in physical exam. He was admitted as GI bleed. He has a history of aortic valve repair. He is not on anticoagulation other than aspirin. He has been stable up until this morning when she went to do vitals. His feet are blue at the toes and instep. To touch his legs, feet, hands and face are quite cold. Speech is slurred, hesitant. So far he is normotensive, pulse is 93 but O2 sats are difficult to maintain. He is 88% on room air and is requiring O2. He denies any chest pain, shortness of breath. His only complaint is "I am cold". On examination he is a tall thin elderly white male, balding, confused to place and time. Cooperative. Voice is slightly slurred. Increased respiratory rate but no use of accessory muscles. Muffled cardiac tones. Abdomen is scaphoid, normal bowel sounds but winces with left lower quadrant pain. The toes of his feet with left worse than right are quite blue. He is cold to touch. No focal deficits. Assessment/plan: Sudden increased respiratory rate, cyanosis and confusion in an elderly gentleman who has a GI bleed and a history of aortic valve disease. Differential diagnosis could include NM, PE, worsening GI bleed, new infection with sepsis. Check stat CBC, CMP, blood gas, EKG, chest x-ray and echocardiogram for valve dysfunction. As all of these studies come back, we will adjust treatment.
[2017-09-03] MEDS: metFORMIN 500 MG TABLET PO SCH (08:21)
[2017-09-03] MEDS: FAMOTIDINE 20 MG TABLET PO SCH ×2 (08:22→22:18)
[2017-09-03] MEDS: DOCUSATE SODIUM 250 MG CAPSULE PO SCH ×2 (08:22→22:18)
[2017-09-03] MEDS: MULTIVITAMIN TABLET PO SCH (08:22)
[2017-09-03] MEDS: POLYETHYLENE GLYCOL 3350 17 GM PACKET PO SCH (08:23)
[2017-09-03] MEDS: SENNA 8.6 MG TABLET PO SCH (08:23)
[2017-09-03] MEDS: ASPIRIN EC 325 MG TABLET PO SCH (08:23)
[2017-09-03] MEDS ORDERED: FUROSEMIDE 40 MG/4 ML VIAL IVP SCH (11:00)
[2017-09-03] MEDS ORDERED: BISACODYL 10 MG SUPP PR ONE (11:56)
[2017-09-03] MEDS ORDERED: BISACODYL 10 MG SUPP PR SCH (12:16)
[2017-09-03] MEDS ORDERED: WARFARIN 2.5 MG TABLET PO SCH (14:00)
[2017-09-03] MEDS: cefTRIAXone 1 GM in SODIUM CHLORIDE 0.9% MINIBAG 100 ML IV SCH (14:10)
[2017-09-03] MEDS: MORPHINE 2 MG/ML SYRINGE IVP PRN ×2 (14:44→17:43)
--- NOTE | 2017-09-03 17:50 | PROVIDER PROGRESS NOTE ---
Subjective - Prog Note Date Prog Note Date: 09/03/17 Prog Note Time: 17:47 - Subjective Pt reports feeling: Improved Subjective: The patient just wants to go home. He does not understand why he has to stay here. He acknowledges that he is "old, sick, and that it is time for him to possibly ". Why do we keep on doing things to him and keeping him here? That was his last question to me.But when I talked to his , he was playing [employer] last week. He is a usually very grumpy, acerbic elderly gentleman who is mentally sharp. I saw him in the plaster mixer hours of yesterday morning around 6 AM. That workup was negative for OK, and I started him on IV fluids. His cyanosis has improved but he still continues to have blue knuckles on his toes. His states that the lateral part of his foot is always slightly blue, and the knuckles of his toes are slightly blue. But yesterday and today it is the where she is ever seen them. He usually spends his time in a hospital bed elevating his feet and she wonders if were not elevating his feet enough. fine patcher this morning, the nocturnal has had to give him Lasix because of fluid overload and a BMP over 4000. Now by this afternoon, his creatinine has bumped. He has chronic pain syndrome and usually uses morphine extended release at home. 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 He would like that resumed. Dr. Forman, his primary care provider, was present this morning to see him and discussed the case with me. He denies chest pain. Endorses the shortness of breath that comes and goes out of "nowhere". Denies cough, fever, Abdominal pain. Appetite has been worse over the last month. But he cannot say why it has been worse. Current Medications - Current Medications Current Medications: Active Medications Acetaminophen (Tylenol) 650 mg PO Q4HR PRN PRN Reason: Pain 1 to 4 Last Admin: 09/02/17 03:09 Dose: 650 mg Aspirin (Ecotrin) 325 mg PO DAILY [facility] Last Admin: 09/03/17 08:23 Dose: 325 mg Atorvastatin Calcium (Lipitor) 10 mg PO QPM [facility] Last Admin: 09/02/17 21:23 Dose: 10 mg Docusate Sodium (Colace 250mg Capsule) 250 mg PO BID [facility] Last Admin: 09/03/17 08:22 Dose: 250 mg Famotidine (Pepcid) 20 mg PO BID [facility] Last Admin: 09/03/17 08:22 Dose: 20 mg Ceftriaxone Sodium 1 gm/ (Sodium Chloride) 100 mls @ 200 mls/hr IV Q24H [facility] Last Infusion: 09/03/17 14:45 Dose: Infused Metformin HCl (Glucophage) 500 mg PO QDBREAKFAST [facility] Last Admin: 09/03/17 08:21 Dose: 500 mg Mineral Oil (Cavilon) 1 applic TOP PRN PRN PRN Reason: Skin Care Morphine Sulfate () 30 mg PO BID [facility] Multivitamins (Theragran) 1 tab PO DAILY [facility] Last Admin: 09/03/17 08:22 Dose: 1 tab Ondansetron HCl (Zofran Inj) 4 mg IVP Q6HR PRN PRN Reason: Nausea / Vomiting Last Admin: 09/02/17 03:33 Dose: 4 mg Polyethylene Glycol (Miralax) 17 gm PO DAILY [facility] Last Admin: 09/03/17 08:23 Dose: Not Given Senna (Senokot) 17.2 mg PO DAILY [facility] Last Admin: 09/03/17 08:23 Dose: 17.2 mg Sodium Chloride (Normal Saline Flush 0.9%) 10 ml IVP PRN PRN PRN Reason: NEEDED PER PROVIDER ORDERS Sodium Chloride (Normal Saline Flush 0.9%) 10 ml IVP Q8HR [facility] Last Admin: 09/03/17 17:43 Dose: 10 ml Warfarin Sodium (Coumadin) 2.5 mg PO [email or web address] [facility] Last Admin: 09/03/17 14:09 Dose: 2.5 mg Warfarin Sodium (Coumadin) 5 mg PO [email or web address] [facility] Last Admin: 09/02/17 14:50 Dose: 5 mg Zolpidem Tartrate (Ambien) 5 mg PO QPM PRN PRN Reason: Insomnia Atorvastatin [Lipitor] 10 mg PO QPM 10/07/14 Docusate Sodium 250Mg Capsule [Colace] 250 mg PO BID 10/07/14 Losartan [Cozaar] 25 mg PO DAILY 10/07/14 Metformin HCl 500 mg PO QDBREAKFAST 10/07/14 Metoprolol Tartrate 25 mg PO BID 10/07/14 Morphine Sulfate [Morphine Sulfate Cr] 30 mg PO BID 10/07/14 Omeprazole 20 mg PO DAILY 10/07/14 Sulfamethoxazole/Trimethoprim [Bactrim Ds Tablet] 1 tab PO BID 10/07/14 Warfarin [Coumadin] 5 mg PO MOWEFR 10/07/14 Aspirin EC [Ecotrin] 325 mg PO DAILY 09/01/17 Multivitamin [Multivitamins] 1 each PO DAILY 09/01/17 Multivitamin [Theragran] 1 tab PO DAILY 09/01/17 Senna [Senokot] 17.2 mg PO DAILY 09/01/17 Warfarin [Coumadin] 2.5 mg PO SUTUTHSA 09/01/17 Objective - Vital Signs/Intake & Output Reviewed Vital Signs: Yes Vital Signs: Vital Signs x48h Temp Pulse Resp BP Pulse Ox 09/03/17 16:00 36.4 C L 87 17 89 L 09/03/17 15:43 36.9 C 83 20 122/49 L 99 09/03/17 13:19 87 94/55 L 97 Intake & Output: Intake & Output 08/31/17 09/01/17 09/02/17 09/03/17 23:59 23:59 23:59 23:59 Intake Total 400 3130 1030 Output Total 200 125 Balance 400 2930 905 - Objective General Appearance: positive: No acute distress (Right now, but yesterday and today he has had 3 episodes of acute increased shortness of breath and discomfort and crying out for "help me"), Other (Confused at times. Elderly gentleman with very very slight slurred speech.) Eyes Bilateral: positive: PERRL ENT: positive: Dry mucous membranes Neck: positive: No JVD, Carotid bruit. negative: Stiff neck Respiratory: positive: Chest non-tender. negative: Wheezes, Rales, Rhonchi Cardiovascular: positive: Regular rate & rhythm, Systolic murmur. 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 skin is cool over legs, arms, face, shiny tight skin of shins but no edema) Extremities: positive: Pedal edema (mild). negative: Full ROM Neurologic/Psychiatric: positive: Disoriented to place (at times), Disoriented to time (at times), Weakness, Other (no focal loss of strenth. the mental status change is new for him over the last 2-3 days according to .) - Lab Results Fish Bones: 09/03/17 06:19 09/03/17 06:19 Other Labs: Lab Results x24hrs 09/03/17 09/03/17 09/02/17 Range/Units 06:19 06:19 23:17 WBC 6.6 (4.8-10.8) x10^3/uL RBC 3.23 L (4.70-6.10) 10^6/uL Hgb 8.4 L (14.0-18.0) g/dL Hct 26.8 L (42.0-52.0) % MCV 83.1 (80.0-94.0) fL MCH 26.0 L (27.0-31.0) pg MCHC 31.3 L (32.0-36.0) g/dL RDW 16.4 H (12.0-15.0) % Plt Count 193 (130-450) 10^3/uL MPV 7.9 (7.4-11.4) fL Neut # 4.8 (1.5-6.6) 10^3/uL Lymph # 1.2 L (1.5-3.5) 10^3/uL Denali # 0.5 (0.0-1.0) 10^3/uL Eos # 0.0 (0.0-0.7) 10^3/uL Baso # 0.0 (0.0-0.1) 10^3/uL Absolute Nucleated RBC 0.01 x10^3/uL Nucleated RBC % 0.1 /100WBC Bld Gas Analysis Time Sample Site ABG pH (7.35-7.45) ABG pCO2 (34-45) mmHg ABG pO2 (80-100) mmHg ABG HCO3 (22.0-26.0) mmol/L ABG Total CO2 (21.0-29.0) MMOL/L ABG O2 Saturation (94-98) % ABG Oximetry Spot Check % ABG Base Excess (-2.0-3.0) mmol/L Van Test VBG pH 7.218 L (7.31-7.41) VBG pCO2 52.2 H (41-51) mmHg VBG pO2 39.5 (25-47) mmHg VBG HCO3 20.8 L (23-28) mmol/L VBG Total CO2 22.4 L (24-29) mmol/L VBG O2 Saturation 68.3 (60-80) % VBG Base Excess -6.8 L (-2 - +2) mmol/L O2 Delivery Device O2 Liters/Min LPM Sodium 131 L (135-145) mmol/L Potassium 5.3 H (3.5-5.0) mmol/L Chloride 100 L (101-111) mmol/L Carbon Dioxide 23 (21-32) mmol/L Anion Gap 8.0 (6-13) BUN 44 H (6-20) mg/dL Creatinine 1.9 H (0.6-1.2) mg/dL Estimated GFR (MDRD) 34 L (>89) Glucose 164 H (70-100) mg/dL Lactic Acid (0.5-2.2) mmol/L Calcium 8.4 L (8.5-10.3) mg/dL Troponin I (<0.49) ng/mL B-Natriuretic Peptide (5-100) pg/mL 09/02/17 09/02/17 09/02/17 Range/Units 23:17 23:17 23:17 WBC (4.8-10.8) x10^3/uL RBC (4.70-6.10) 10^6/uL Hgb (14.0-18.0) g/dL Hct (42.0-52.0) % MCV (80.0-94.0) fL MCH (27.0-31.0) pg MCHC (32.0-36.0) g/dL RDW (12.0-15.0) % Plt Count (130-450) 10^3/uL MPV (7.4-11.4) fL Neut # (1.5-6.6) 10^3/uL Lymph # (1.5-3.5) 10^3/uL Denali # (0.0-1.0) 10^3/uL Eos # (0.0-0.7) 10^3/uL Baso # (0.0-0.1) 10^3/uL Absolute Nucleated RBC x10^3/uL Nucleated RBC % /100WBC Bld Gas Analysis Time Sample Site ABG pH (7.35-7.45) ABG pCO2 (34-45) mmHg ABG pO2 (80-100) mmHg ABG HCO3 (22.0-26.0) mmol/L ABG Total CO2 (21.0-29.0) MMOL/L ABG O2 Saturation (94-98) % ABG Oximetry Spot Check % ABG Base Excess (-2.0-3.0) mmol/L Van Test VBG pH (7.31-7.41) VBG pCO2 (41-51) mmHg VBG pO2 (25-47) mmHg VBG HCO3 (23-28) mmol/L VBG Total CO2 (24-29) mmol/L VBG O2 Saturation (60-80) % VBG Base Excess (-2 - +2) mmol/L O2 Delivery Device O2 Liters/Min LPM Sodium (135-145) mmol/L Potassium (3.5-5.0) mmol/L Chloride (101-111) mmol/L Carbon Dioxide (21-32) mmol/L Anion Gap (6-13) BUN (6-20) mg/dL Creatinine (0.6-1.2) mg/dL Estimated GFR (MDRD) (>89) Glucose (70-100) mg/dL Lactic Acid 1.6 (0.5-2.2) mmol/L Calcium (8.5-10.3) mg/dL Troponin I 0.27 (<0.49) ng/mL B-Natriuretic Peptide 4236 H (5-100) pg/mL 09/02/17 Range/Units 00:35 WBC (4.8-10.8) x10^3/uL RBC (4.70-6.10) 10^6/uL Hgb (14.0-18.0) g/dL Hct (42.0-52.0) % MCV (80.0-94.0) fL MCH (27.0-31.0) pg MCHC (32.0-36.0) g/dL RDW (12.0-15.0) % Plt Count (130-450) 10^3/uL MPV (7.4-11.4) fL Neut # (1.5-6.6) 10^3/uL Lymph # (1.5-3.5) 10^3/uL Denali # (0.0-1.0) 10^3/uL Eos # (0.0-0.7) 10^3/uL Baso # (0.0-0.1) 10^3/uL Absolute Nucleated RBC x10^3/uL Nucleated RBC % /100WBC Bld Gas Analysis Time 0046 Sample Site RIGHT RADIAL ABG pH 7.31 L (7.35-7.45) ABG pCO2 48 H (34-45) mmHg ABG pO2 143 H (80-100) mmHg ABG HCO3 23.3 (22.0-26.0) mmol/L ABG Total CO2 24.7 (21.0-29.0) MMOL/L ABG O2 Saturation 99 H (94-98) % ABG Oximetry Spot Check 100 % ABG Base Excess -3.0 L (-2.0-3.0) mmol/L Van Test POSITIVE VBG pH (7.31-7.41) VBG pCO2 (41-51) mmHg VBG pO2 (25-47) mmHg VBG HCO3 (23-28) mmol/L VBG Total CO2 (24-29) mmol/L VBG O2 Saturation (60-80) % VBG Base Excess (-2 - +2) mmol/L O2 Delivery Device OXYMASK O2 Liters/Min 12.00 LPM Sodium (135-145) mmol/L Potassium (3.5-5.0) mmol/L Chloride (101-111) mmol/L Carbon Dioxide (21-32) mmol/L Anion Gap (6-13) BUN (6-20) mg/dL Creatinine (0.6-1.2) mg/dL Estimated GFR (MDRD) (>89) Glucose (70-100) mg/dL Lactic Acid (0.5-2.2) mmol/L Calcium (8.5-10.3) mg/dL Troponin I (<0.49) ng/mL B-Natriuretic Peptide (5-100) pg/mL Assessment/Plan - Problem List (1) CAP (community acquired pneumonia) Impression: being treated as this bc of the abnormal CXR seen on admisison. but he has no fever, and his WBC has been nml. No sudden hx of cough, congestion. more of a slow slide downward. Day #2 of rocephin blood cultures negative. Qualifiers: Laterality: left (2) Metabolic acidemia Impression: with rising BUN/creat, rising potassium over this admission. But present on admission. Could this be organ failure from lactic acidosis in a patient who is tenuous and is on metformin. stop metformin. give bicarb check renal US. (3) SOB (shortness of breath) Impression: troponins are mildly elevated and not felt to be acute ischemia. CXR +/- for pneumonia BNP up indicating CHF in a pt with CAD and ACB. Check ECHO. no more lasix since his creat is worse. (4) PVD (peripheral vascular disease) Impression: his feet are impressive. but could be venous stasis. will elevate his feet more. Could he have aortic disease? worsening PVD that is subtle" and that's why he is failing? At this age and with his previous interventions, I would hesitate to do more to him. I have broached the topic with his about Palliative care. She will be here tomorrow in the am and we can meet again then. (5) Anemia Impression: worsening with only trace FOBT on stool. He's on coumadin. Could it be PUD or other internal blood loss. Will talk to about how much she wants us to do. He doesn't want ANYTHING done. Qualifiers: Anemia type: unspecified type Qualified Code(s): D64.9 - Anemia, unspecified
--- NOTE | 2017-09-03 18:06 | HISTORY & PHYSICAL EXAMINATION ---
DATE OF ADMISSION: 09/01/2017 HISTORY OF PRESENT ILLNESS: This is an 86-year-old white male who has a history of open heart surgery, CABG, status post bilateral fem-pop surgery with stents and history of toe amputations because of peripheral vascular disease, he is maintained on Coumadin for this. The patient is unable to ambulate and uses an electric scooter as well as a wheelchair in his house. He is able to transfer on his own from this device to the bathroom, he states. The patient remembers once falling forward out of his scooter reaching for contents in the refrigerator, but had no major trauma and was able to return back to his scooter with the help of his and did not seek medical attention. The patient presents now with a 1-2 day history of worsening oral intake, lethargy and weakness and could not even sit up unassisted. He had shortness of breath with rapid breathing, according to his . There has been a cough with minimal sputum production according to his . There was no fever. She also described that he has had normal bowel movements, no melena. The patient was seen in the emergency room with his arrival complaint of severe weakness and has been diagnosed with community-acquired pneumonia, altered mental status, anemia, acute kidney injury and is admitted for further management of these diagnoses. PAST MEDICAL HISTORY: Diabetes, coronary artery disease with bypass, peripheral vascular disease with revascularization, toe amputations, hypertension. It is unclear if he has a history of Afib. MEDICATIONS AT HOME: 1. Lipitor. 2. Colace. 3. Cozaar. 4. Metformin. 5. Metoprolol. 6. Morphine sulfate. 7. Omeprazole. 8. Bactrim-DS (unknown duration and diagnosis). 9. Coumadin. 10. Adult dose aspirin. 11. Multivitamin. 12. Theragran. 13. Senokot. ALLERGIES: 1. HYDROCODONE, WHICH CAUSES RASH. 2. LISINOPRIL, WHICH CAUSES UNKNOWN REACTION. 3. OXYCODONE, WHICH CAUSED RASH. 4. PENICILLINS WHICH CAUSED A RASH. SOCIAL HISTORY: The patient was never a smoker and drinks no alcohol. He lives with his . He no longer drives. CODE STATUS: THE PATIENT HAS A POLST, WHICH DESCRIBES DO NOT RESUSCITATE, NO AGGRESSIVE TREATMENT. REVIEW OF SYSTEMS: His INR was 4.4 reportedly a day ago. Hemoccult stool test was wakly positive in the ER today. Comprehensive review of systems was performed by chart review and discussion with the family and only the positives are listed in the HPI. FAMILY HISTORY: No positive inherited diseases. PHYSICAL EXAMINATION: GENERAL: Reveals a white male who is in no respiratory distress. VITAL SIGNS: Blood pressure 111/66, pulse of 85, respiratory rate 15, O2 saturation 94% on 2 liters nasal cannula, 96% on room air, no temperature. HEENT: Marked dry oral mucosa, poor oral dentition, hard of hearing. NECK: Shows no JVD in a supine position. No carotid bruits. No thyromegaly or lymphadenopathy. CHEST: Clear at the anterior bases; however, poor air movement, diffusely. No rales or rhonchi, or wheezes. HEART: Sounds are distant. There is no murmur heard. His PMI is vertically displaced but not enlarged. There is no heave. ABDOMEN: Soft. Positive bowel sounds, nontender. EXTREMITIES: Extremities show tenting of the skin. No leg edema. Amputations of toes. NEUROLOGIC: Intact grossly. LABORATORY DATA: Sodium 134, potassium 5.1, BUN 31, creatinine 1.3. Magnesium not obtained. Normal liver tests. Troponin 0.13 and the next troponin 0.14. INR 2.4 (the last one was 4.4 by report), white blood count 6.9, hemoglobin 8.7, platelet count normal at 231, normal differential. IMAGING: Chest x-ray, left pulmonary opacities at the base and small left pleural effusion. EKG sinus rhythm, right bundle branch block, diffuse ST depressions and T-wave inversions inferolaterally in leads V3 through V6. There is no old EKG available for comparison. IMPRESSION/Diagnoses: 1. Weakness, which is likely multifactorial. 2. Community acquired pneumonia, left lower lobe. 3. Acute kidney injury. 4. Dehydration, by clinical exam and by labs. 5. Coronary artery disease with prior bypass. 6. Peripheral vascular disease with prior revascularization and amputations from vascular insufficiency. 7. Excessive INR recently but currently therapeutic. 8. New onset of anemia, etiology unclear (heme-positive stool was noted by the emergency room physician on hemocculttesting). 9. Abnormal EKG with right bundle branch block, but also suggestion of ischemia. 10. Elevated troponins, but in a flat pattern which are not consistent with acute coronary syndrome, but rather with either CHF versus elevated creatinines. PLAN: Admit the patient to Med/Surg unit. Place on telemetry. Start IV fluids. Culture of his sputum and his blood. IV antibiotics for his community-acquired pneumonia. Continue with his Coumadin dose which is currently therapeutic by INR. Continue with management of his vascular disease with statin, beta nikita. Stop the losartan because of the renal insufficiency. Avoid any diuretics. CODE STATUS: DNR. Time spent on this admission 60 minutes. JOB #: [id number] EXT JOB #:[id number] MILES
--- NOTE | 2017-09-03 21:44 | Ultrasound Preliminary Report ---
Exam: US RETROPERITONEAL IMPRESSION: 1. No renal mass, stones or hydronephrosis. 2. Echogenic renal cortex. Findings are nonspecific but can be associated with renal insufficiency. [facility] SITE ID: [id number]
--- NOTE | 2017-09-03 21:59 | Ultrasound Report ---
EXAM: RENAL ULTRASOUND EXAM DATE: 09/03/2017 09:08 PM. CLINICAL HISTORY: Acidotic, hyperkalemic, rising creatinine. COMPARISON: None. TECHNIQUE: Real-time scanning was performed with static images obtained. FINDINGS: Right Kidney: 8.9 x 5.2 x 7 cm. No mass, stones or hydronephrosis. Echogenic renal cortex. Left Kidney: 7.9 x 4.7 x 7.2 cm. No mass, stones or hydronephrosis. Echogenic renal cortex. 1.5 x 1.7 x 1.3 cm anechoic left upper renal cyst. Bladder: Bilateral jets seen. The prevoid bladder volume was 208 cc. The postvoid bladder volume was not obtained because the patient was unable to void. Possible small left posterior bladder diverticul um. No bladder stone or mass. Additional Findings: Right-sided pleural effusion. IMPRESSION: 1. No renal mass, stones or hydronephrosis. 2. Echogenic renal cortex. Findings are nonspecific but can be associated with renal insufficiency. [facility] Referring Provider Line: [phone] SITE ID: [id number]
[2017-09-03] MEDS: ATORVASTATIN 10 MG TABLET PO SCH (22:18)
[2017-09-03] MEDS: MORPHINE ER 15 MG TABLET PO SCH (22:18)
[2017-09-03] MEDS ORDERED: FUROSEMIDE 40 MG/4 ML VIAL IVP STA (23:51)
[2017-09-04 05:38] LABS: BASOPHILS % (AUTO) 0.5 %; EOSINOPHILS # (AUTO) 0.1 10^3/uL (0.0-0.7); EOSINOPHILS % (AUTO) 1.4 %; HCT - HEMATOCRIT 26.1 % (42.0-52.0); HGB - HEMOGLOBIN 8.3 g/dL (14.0-18.0); LYMPHOCYTES # (AUTO) 1.9 10^3/uL (1.5-3.5); LYMPHOCYTES % (AUTO) 26.1 %; MEAN CORPUSCULAR HEMOGLOBIN 25.9 pg (27.0-31.0); MEAN CORPUSCULAR HGB CONC 31.6 g/dL (32.0-36.0); MONOCYTES # (AUTO) 0.6 10^3/uL (0.0-1.0); MONOCYTES % (AUTO) 8.7 %; NEUTROPHILS # (AUTO) 4.6 10^3/uL (1.5-6.6); NEUTROPHILS % (AUTO) 63.3 %; RED BLOOD COUNT 3.19 10^6/uL (4.70-6.10); RED CELL DISTRIBUTION WIDTH 15.7 % (12.0-15.0); UNCORRECTED WHITE BLOOD COUNT 7.3 x10^3/uL; WHITE BLOOD COUNT 7.3 x10^3/uL (4.8-10.8)
[2017-09-04 05:58] LABS: CALCIUM 8.4 mg/dL (8.5-10.3); CREATININE 1.7 mg/dL (0.6-1.2); POTASSIUM 4.4 mmol/L (3.5-5.0)
[2017-09-04] MEDS: FAMOTIDINE 20 MG TABLET PO SCH ×2 (08:33→20:31)
[2017-09-04] MEDS: DOCUSATE SODIUM 250 MG CAPSULE PO SCH ×2 (08:33→20:31)
[2017-09-04] MEDS: ASPIRIN EC 325 MG TABLET PO SCH (08:33)
[2017-09-04] MEDS: MULTIVITAMIN TABLET PO SCH (08:34)
[2017-09-04] MEDS: SENNA 8.6 MG TABLET PO SCH (08:34)
[2017-09-04] MEDS: POLYETHYLENE GLYCOL 3350 17 GM PACKET PO SCH (08:34)
[2017-09-04] MEDS: MORPHINE ER 15 MG TABLET PO SCH ×2 (08:34→20:33)
[2017-09-04] MEDS: SODIUM BICARBONATE 100 MEQ in DEXTROSE 5% 1,000 ML IV SCH ×2 (08:58→23:51)
[2017-09-04] MEDS: cefTRIAXone 1 GM in SODIUM CHLORIDE 0.9% MINIBAG 100 ML IV SCH (14:26)
[2017-09-04] MEDS: WARFARIN 5 MG TABLET PO SCH (14:27)
--- NOTE | 2017-09-04 19:17 | PROVIDER PROGRESS NOTE ---
Current Medications - Current Medications Current Medications: Active Medications Acetaminophen (Tylenol) 650 mg PO Q4HR PRN PRN Reason: Pain 1 to 4 Last Admin: 09/02/17 03:09 Dose: 650 mg Aspirin (Ecotrin) 325 mg PO DAILY [facility] Last Admin: 09/04/17 08:33 Dose: 325 mg Atorvastatin Calcium (Lipitor) 10 mg PO QPM [facility] Last Admin: 09/03/17 22:18 Dose: 10 mg Docusate Sodium (Colace 250mg Capsule) 250 mg PO BID [facility] Last Admin: 09/04/17 08:33 Dose: 250 mg Famotidine (Pepcid) 20 mg PO BID [facility] Last Admin: 09/04/17 08:33 Dose: 20 mg Ceftriaxone Sodium 1 gm/ (Sodium Chloride) 100 mls @ 200 mls/hr IV Q24H [facility] Last Infusion: 09/04/17 14:56 Dose: Infused Sodium Bicarbonate 100 meq/ (Dextrose) 1,100 mls @ 75 mls/hr IV .[id number] [facility] Last Infusion: 09/04/17 15:05 Dose: 75 mls/hr Mineral Oil (Cavilon) 1 applic TOP PRN PRN PRN Reason: Skin Care Morphine Sulfate () 30 mg PO BID [facility] Last Admin: 09/04/17 08:34 Dose: 30 mg Multivitamins (Theragran) 1 tab PO DAILY [facility] Last Admin: 09/04/17 08:34 Dose: 1 tab Ondansetron HCl (Zofran Inj) 4 mg IVP Q6HR PRN PRN Reason: Nausea / Vomiting Last Admin: 09/02/17 03:33 Dose: 4 mg Polyethylene Glycol (Miralax) 17 gm PO DAILY [facility] Last Admin: 09/04/17 08:34 Dose: Not Given Senna (Senokot) 17.2 mg PO DAILY [facility] Last Admin: 09/04/17 08:34 Dose: 17.2 mg Sodium Chloride (Normal Saline Flush 0.9%) 10 ml IVP PRN PRN PRN Reason: NEEDED PER PROVIDER ORDERS Last Admin: 09/04/17 00:14 Dose: 10 ml Sodium Chloride (Normal Saline Flush 0.9%) 10 ml IVP Q8HR [facility] Last Admin: 09/03/17 17:43 Dose: 10 ml Warfarin Sodium (Coumadin) 2.5 mg PO [id number] [facility] Last Admin: 09/03/17 14:09 Dose: 2.5 mg Warfarin Sodium (Coumadin) 5 mg PO [email or web address] [facility] Last Admin: 09/04/17 14:27 Dose: 5 mg Zolpidem Tartrate (Ambien) 5 mg PO QPM PRN PRN Reason: Insomnia Atorvastatin [Lipitor] 10 mg PO QPM 10/07/14 Docusate Sodium 250Mg Capsule [Colace] 250 mg PO BID 10/07/14 Losartan [Cozaar] 25 mg PO DAILY 10/07/14 Metformin HCl 500 mg PO QDBREAKFAST 10/07/14 Metoprolol Tartrate 25 mg PO BID 10/07/14 Morphine Sulfate [Morphine Sulfate Cr] 30 mg PO BID 10/07/14 Omeprazole 20 mg PO DAILY 10/07/14 Sulfamethoxazole/Trimethoprim [Bactrim Ds Tablet] 1 tab PO BID 10/07/14 Warfarin [Coumadin] 5 mg PO MOWEFR 10/07/14 Aspirin EC [Ecotrin] 325 mg PO DAILY 09/01/17 Multivitamin [Multivitamins] 1 each PO DAILY 09/01/17 Multivitamin [Theragran] 1 tab PO DAILY 09/01/17 Senna [Senokot] 17.2 mg PO DAILY 09/01/17 Warfarin [Coumadin] 2.5 mg PO SUTUTHSA 09/01/17 Objective - Vital Signs/Intake & Output Reviewed Vital Signs: Yes Vital Signs: Vital Signs x48h Temp Pulse Resp BP Pulse Ox 09/04/17 15:55 36.5 C 94 18 99/63 97 Intake & Output: Intake & Output 09/01/17 09/02/17 09/03/17 09/04/17 23:59 23:59 23:59 23:59 Intake Total 400 3130 1270 1110 Output Total 200 485 925 Balance 400 2930 785 185 - Objective General Appearance: positive: Alert (but wanes with lethargy off and on), Moderate distress (still gasps for air with speaking), Other (very very frail, although no melena he smells like a GI bleed) Eyes Bilateral: positive: PERRL, EOMI ENT: positive: Dry mucous membranes (mouth breathes) Neck: positive: No JVD. negative: Stiff neck, Carotid bruit Respiratory: positive: Chest non-tender. negative: Wheezes, Rales (in spite of the ECHO report), Rhonchi Cardiovascular: positive: Systolic murmur. negative: Gallop/S4, Friction rub Abdomen: positive: Non-tender, No organomegaly, Nml bowel sounds, No distention Skin: positive: Warm, Dry Extremities: positive: Pedal edema Neurologic/Psychiatric: positive: Oriented x3, CN's nml (2-12), Motor nml ( grossly but very very weak in gneral fashion), Weakness (can't sit up, lift head without assist) - Lab Results Fish Bones: 09/04/17 05:07 09/04/17 05:07 Other Labs: Lab Results x24hrs 09/04/17 09/04/17 Range/Units 05:07 05:07 WBC 7.3 (4.8-10.8) x10^3/uL RBC 3.19 L (4.70-6.10) 10^6/uL Hgb 8.3 L (14.0-18.0) g/dL Hct 26.1 L (42.0-52.0) % MCV 82.0 (80.0-94.0) fL MCH 25.9 L (27.0-31.0) pg MCHC 31.6 L (32.0-36.0) g/dL RDW 15.7 H (12.0-15.0) % Plt Count 182 (130-450) 10^3/uL MPV 8.0 (7.4-11.4) fL Neut # 4.6 (1.5-6.6) 10^3/uL Lymph # 1.9 (1.5-3.5) 10^3/uL [place] # 0.6 (0.0-1.0) 10^3/uL Eos # 0.1 (0.0-0.7) 10^3/uL Baso # 0.0 (0.0-0.1) 10^3/uL Absolute Nucleated RBC 0.00 x10^3/uL Nucleated RBC % 0.0 /100WBC Sodium 129 L (135-145) mmol/L Potassium 4.4 (3.5-5.0) mmol/L Chloride 98 L (101-111) mmol/L Carbon Dioxide 22 (21-32) mmol/L Anion Gap 9.0 (6-13) BUN 40 H (6-20) mg/dL Creatinine 1.7 H (0.6-1.2) mg/dL Estimated GFR (MDRD) 38 L (>89) Glucose 120 H (70-100) mg/dL Calcium 8.4 L (8.5-10.3) mg/dL Iron 6 L (45-182) ug/dL TIBC 300 (250-450) ug/dL % Saturation 2 L (20-50) % Transferrin 214 (180-329) mg/dL Assessment/Plan - Problem List (1) CAP (community acquired pneumonia) Impression: being treated as this bc of the abnormal CXR seen on admisison. but he has no fever, and his WBC has been nml. No sudden hx of cough, congestion. more of a slow slide downward. Day #3 of rocephin blood cultures negative. Qualifiers: Laterality: left (2) Metabolic acidemia Impression: with rising BUN/creat, rising potassium over this admission. But present on admission. Could this be organ failure from lactic acidosis in a patient who is tenuous and is on metformin. stopped metformin. given bicarb with a D5 bicarb drip since sodium was also low. Rate is only 75 cc /hr. will stop after 1 liter. checked renal US and other than smallness, no findings. (3) SOB (shortness of breath) Impression: Now that ECHO has been done: acute on chronic systolic CHF troponins are mildly elevated and not felt to be acute ischemia. CXR +/- for pneumonia BNP up indicating CHF in a pt with CAD and ACB. Checked ECHO and he has severe global hypokinesis with EF <20% no more lasix since his creat is worse but he will need it and will need to be gingerly balanced between intake and output . Once the 1 liter of D5 with bicarb given, will resume 20 mg po. (4) PVD (peripheral vascular disease) Impression: his feet are impressive. but could be venous stasis. will elevate his feet more. But this may be overall worsening bc of the low EF. That's why his feet and legs, and arm are so cold. (5) Anemia Impression: worsening with only trace FOBT on stool. He's on coumadin. Could it be PUD or other internal blood loss. Will talk to about how much she wants us to do. He doesn't want ANYTHING done. After today's discussion, no further work up and just treat symptomatically. He really does smell like a GI bleed. Qualifiers: Anemia type: unspecified type Qualified Code(s): D64.9 - Anemia, unspecified (6) Advanced Care Planning discussion today. 1.5 hours spent with and son then 30 minutes with patient. Please refer to separate document. Qualifiers: Laterality: left (5) Anemia Qualifiers: Qualified Code(s): D64.9 - Anemia, unspecified
[2017-09-04] MEDS: ATORVASTATIN 10 MG TABLET PO SCH (20:31)
[2017-09-04] MEDS: SODIUM CHLORIDE FLUSH 0.9% 10 ML SYRINGE IVP SCH (20:35)
[2017-09-05] MEDS: SODIUM CHLORIDE FLUSH 0.9% 10 ML SYRINGE IVP SCH (00:55)
[2017-09-05 05:45] LABS: BASOPHILS % (AUTO) 0.6 %; EOSINOPHILS # (AUTO) 0.3 10^3/uL (0.0-0.7); EOSINOPHILS % (AUTO) 4.1 %; HCT - HEMATOCRIT 27.1 % (42.0-52.0); HGB - HEMOGLOBIN 8.5 g/dL (14.0-18.0); LYMPHOCYTES # (AUTO) 1.6 10^3/uL (1.5-3.5); LYMPHOCYTES % (AUTO) 22.8 %; MEAN CORPUSCULAR HEMOGLOBIN 25.8 pg (27.0-31.0); MEAN CORPUSCULAR HGB CONC 31.5 g/dL (32.0-36.0); MEAN CORPUSCULAR VOLUME 81.9 fL (80.0-94.0); MEAN PLATELET VOLUME 7.8 fL (7.4-11.4); MONOCYTES # (AUTO) 0.6 10^3/uL (0.0-1.0); MONOCYTES % (AUTO) 8.8 %; NEUTROPHILS # (AUTO) 4.4 10^3/uL (1.5-6.6); NEUTROPHILS % (AUTO) 63.7 %; NUCLEATED RED BLOOD CELLS AUTO 0.1 /100WBC; RED BLOOD COUNT 3.31 10^6/uL (4.70-6.10); RED CELL DISTRIBUTION WIDTH 16.1 % (12.0-15.0)
[2017-09-05 05:55] LABS: CALCIUM 8.7 mg/dL (8.5-10.3); CREATININE 1.3 mg/dL (0.6-1.2); POTASSIUM 3.9 mmol/L (3.5-5.0)
--- NOTE | 2017-09-05 07:44 | Discharge Plan ---
Discharge Plan Disposition: Home, Self Care Condition: Fair Prescriptions: Furosemide [Lasix] 40 mg PO DAILY #30 tablet Diet: Diabetic Activity Restrictions: Activity as Tolerated Shower Restrictions: No Driving Restrictions: Yes (no driving) Assistance Devices: Wheelchair Additional Instructions or Follow Up instructions: You were admitted to the hospital because of gradually worsening weakness over the last 2 months and severe cough over the last week. You had already been treated for pneumonia in the outpatient setting. You had finally gotten so weak that you had tumbled forward out of the wheelchair when reaching for something. Although we did find abnormalities in your chest x-ray that may or may not have been pneumonia, you did not have a fever nor did you have an elevated white cell count indicating severe infection. Nevertheless we treated you as pneumonia with IV antibiotics. What we also found during your stay here severe end-stage congestive heart failure. The heart muscle on the left side of your body is so severely impaired that minimal excess IV fluids or minimal excess oral fluids will create a failure of that left heart pump. That in turn would worsen your peripheral vascular disease and make your hands, knees, and feet blue. It is a very delicate balance of trying to give you enough fluids but at the same time give you diuretics so as not to put you into acute congestive heart failure or kidney failure. The congestive heart failure has left you very short of breath with minimal effort so you will need oxygen at home. Unfortunately your prognosis is poor. You have expressed to me that you have already thought about the inevitability of getting sicker and possibly passing away and have indicated that you want to be DO NOT RESUSCITATE with limited interventions. I would strongly recommend that you start having housecal with palliative care consultation since it is very difficult for you to leave the house. I have already spoken to Dr. Forman, and he is amenable to that. The palliative care provider is REY Gentile and she knows one of your in home support providers, Alix. The only new medicine I am starting on you is Lasix. There is a medicine called an EBENEZER inhibitor that I would like to start you on as well but it would lower your blood pressure too much. Dr. Forman may be able to start it if your blood pressure tolerates it. The other thing we found was a gradually dropping hemoglobin. Because of your history of peripheral vascular disease, I suspect that you may have some endovascular or internal leaking causing you to have anemia. Your stools did have a trace of blood on them when we checked them. Your iron is very low. But you have not needed a blood transfusion. You are caught between a rock and a hard place and that I would recommend stopping the Coumadin but you need it for your peripheral vascular disease. Please see Dr. Forman in the next week if possible. Follow-Up Care: Home Health - RN (severe CHF and needed monitoring of BMP, BNP and status of lungs in order to change meds.), Home Health - PT No Smoking: If you smoke, Please STOP! Call for help. Follow-up with: Rio Forman MD [Primary Care Provider] -
[2017-09-05] MEDS: FAMOTIDINE 20 MG TABLET PO SCH (08:14)
[2017-09-05] MEDS: MORPHINE ER 15 MG TABLET PO SCH (08:14)
[2017-09-05] MEDS: DOCUSATE SODIUM 250 MG CAPSULE PO SCH (08:14)
[2017-09-05] MEDS: POLYETHYLENE GLYCOL 3350 17 GM PACKET PO SCH (08:14)
[2017-09-05] MEDS: ASPIRIN EC 325 MG TABLET PO SCH (08:14)
[2017-09-05] MEDS: SENNA 8.6 MG TABLET PO SCH (08:14)
[2017-09-05] MEDS: MULTIVITAMIN TABLET PO SCH (08:17)
[2017-09-05 12:29] VITALS: BP 122/72
--- NOTE | 2017-09-05 15:53 | ADVANCE CARE PLANNING NOTE ---
Advance Care Planning - Date/Time Date: 09/04/17 Time: 11:30 - Purpose of encounter Text: To establish his goals with regards to activities, assess his understanding of his disease state especially since he has protested even simple IV fluids this admission - Parties in attendance Parties in attendance: Son Woo Altman, , hospitalist Nydia Sahu, and patient - Decisional capacity Decisional capacity of: Patient is slightly impaired. He is very fatigued, and prolonged conversation his left him short of breath and exhausted - Subjective/Patient's story Subjective/Patient's story: He was born in [place] and describes his life is a hard life with very strict parents. He left his father very much and respected him for all the things that he taught him. He says that he is the self-sufficient, hard-working man today that his father molded him into. 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 He served in [place]. While he was in [place] he met his future . After the they moved back to [place] where they raised 2 children. He moved to [facility] approximately 21 years ago. They built her own home. 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 Prides himself on his ability to fix things. His greatest sarath is tinkering around with multiple projects on an ongoing basis. He built his own home. He and his have a very good marriage but because he is described as "ornery as hell" he is sometimes not a great corbin to live with. So he lives downstairs, has his bed there, tinkers with all of his projects down there.His lives upstairs in the main area where the kitchen and living room are. She will go downstairs in the morning and get him out of bed. For the last 5-6 years he is able to sit to stand and transfer to a wheelchair. There is an elevator that takes him upstairs. He spends about 4-6 hours up stairs with her. They eat breakfast , read the paper, discuss today's events. Eat a late lunch, early dinner. When he gets tired it is time for him to go back downstairs and spend the rest of his day tinkering with his projects. She stays up stairs and give him a space.They have an in-home support provider who comes 2 days a week to give him his bed baths, do skin care. She is a retired home health nurse and although the patient and she have their disagreements, they have known each other for a long time His health took a turn for the worse about 2000 when he had his bypass surgery. He never had the energy that he used to have before but was still able to dance at a niece's wedding about 2001. I believe he continued to smoke. Subsequent to that he developed severe peripheral vascular disease and needed aortofemoral bypass surgery. 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 In an effort to help leg ischemia he had a second vascular procedure. I am not quite clear what they did but he said that he ended up having catastrophic complications including an MRSA infection. That is what led him to have the philosophy that he never wants to be hospitalized again for aggressive surgical intervention or any medical aggressive intervention. The last time his family remembers him standing and walking was at that wedding. Subsequent to his vascular procedures he became more immobile to the point that he was in his wheelchair. But he had a routine as described above. He does not get along with a lot of people. There is that ornery noticed again. But the family has made peace in that his son and daughter come over on a weekly basis to play pinMersimole. He was playing pinochle up until last week.He is slightly paranoid. Very deeply distrustful of people in general. That may explain why he was suspicious of us giving him simple IV fluids. He is convinced that a mistake is going to kill him or that people are deliberately going to harm him. He does not even let his own children spend the night in his house. But about 2 months ago the noticed a change in him. It was getting more more difficult for him to sit and then stand to transfer. He could not stand anymore so they were having to use a board for him to sit on and then slide over into the wheelchair. His hands became increasingly more difficult to use. They were getting swollen and tight and cold and he could not brandee around as much as he used to and it was depressing him. In his generation he is 1 of 3 cousins that he is very close to. Calvin, his closest cousin, this last summer. It is at this point that Woo Altman, the son, mentions to his mother that he thinks that is when dad really started talking about end-of-life, and thinking more about . Mr. Altman, the patient, even went as far as to fill out a POLST form where he wishes to be limited intervention and DNR. He was starting to get weaker and fell out of his wheelchair and reaching for a soda in the refrigerator. Actually fell into the refrigerator and his had to pull him of it. He was sleeping more and more. Eating less. And then he started getting chest congestion with a cough that got progressive enough that he was short of breath even at rest. That is what brought him to the hospital. - Objective/Medical story Objective/Medical Story: He is an 86-year-old white male who has a history of open heart surgery with bypass, status post bilateral femoropopliteal surgery with stents, history of toe amputations because of severe peripheral vascular disease and is maintained on Coumadin. He is unable to ambulate and uses an electric scooter as well as a wheelchair in his home. He is usually able to transfer on his own from the bed to the scooter, scooter to the bathroom, but felt this last week. He has a 1-2 day history of worsening oral intake, lethargy and weakness and cannot sit up even unassisted. He has rapid breathing according to he and his that is scaring him. There is been a dry cough with minimal sputum production. No fever. Normal bowel movements, no melena. He was seen in the emergency room and diagnosed with community-acquired pneumonia on the basis of an abnormal chest x-ray, altered mental status, anemia, new acute kidney insufficiency on chronic kidney insufficiency. He does have diabetes and is on metformin. During the stay he has had several episodes of acute respiratory failure with hypoxia. He desaturates down to the low 80s on room air and needs supplemental oxygen. While we were treating him from pneumonia, I am unimpressed with that because he has no fever and a normal white cell count. When examining him, he has episodes of severe cyanosis of his hands, feet, and knees. His body will be cold to touch and his mentation deteriorates to slurring, stuttering, incoherent and disoriented. CT of the head is been negative for stroke or subdural hematoma. Troponins have been minimally elevated. Chest x-ray was remained unchanged and indicates more CHF than pneumonia. BNP has been elevated. We initially treated his dehydration on admission with fluids but that seemed to worsen the CHF so we stopped it and put him on Lasix. In an effort to truly understand what was going on with him, I ordered a retroperitoneal ultrasound which showed no hydronephrosis or masses causing obstruction in the kidneys. His kidneys were small and shrunken. 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 My suspicion is this gentleman has severe congestive heart failure, severe ischemia of his limbs because his peripheral vascular disease cannot be compensated by the drop in ejection fraction, add metformin and lactic acidosis possibility, anemia of chronic disease, the smell of a GI bleed with positive stools for fecal occult blood and you have an overall status that is quite poor with a poor prognosis. - Goals of Care Goals of care determinations: He readily recognizes that he is at the end of life. I explained to him that many of the questions we ask ourselves as physicians when a patient is admitted , is the "surprise question". Would I be surprised if the patient were alive in year? In his case, yes. Right now, he is grappling with the rapid deterioration in his status. His and son I seen this coming in or not surprised about this. With they are surprised about is that he is still alive. His main goal is to be well enough to use his hands. He misses tinkering in his basement. If he could at least do that he feels like he has a remaining quality of life. He also was still like to play pinochle with his kids - Plan Plan: He does not want to change his POLST form. He would like to remain DO NOT RESUSCITATE with limited interventions. Down the road he may consider comfort measures only. He is just not ready to make that decision yet. He sees the validity of a palliative care consult. But because of his suspicious nature he almost wants to decline it. However his and son are pretty clear they want one. As such, I have spoken to Dr. Forman, his PCP, and REY Gentile the Palliative Care software consultant. Discharge with Home Health fu of his lungs. Assess his needs for more DME. He already has the scooter, wheelchair and hospital bed. Continue the 2 days of in home support and consider increasing those hours. - Code Status Code Status: Do Not Attempt Resuscitation - Time Spent on Advance Care Planning Time spent on advance care plannin minutes.
--- NOTE | 2017-09-06 20:56 | DISCHARGE SUMMARY ---
DATE OF ADMISSION: 09/01/2017 DATE OF DISCHARGE: 09/05/2017 DISCHARGE DIAGNOSES: 1. End-stage congestive heart failure with [id number] systolic heart failure. 2. Severe peripheral vascular disease. 3. Limb ischemia. 4. Acute on chronic kidney disease, stage IV. 5. Iron deficiency anemia. 6. Anemia of chronic disease. 7. Hyperkalemia. 8. Hyponatremia. 9. Metabolic acidosis. 10. Severe aortic stenosis. DISCHARGE MEDICATIONS: 1. Aspirin 325 mg a day. 2. Lipitor 10 mg a day. 3. Colace 250 mg b.i.d. 4. Cozaar 25 mg daily. 5. Metoprolol tartrate 25 mg p.o. b.i.d. 6. Morphine sulfate 30 mg p.o. b.i.d. 7. Multivitamin 1 daily. 8. Theragran 1 p.o. daily. 9. Omeprazole 20 mg daily. 10. Senna 17.2 mg daily. 11. Coumadin 5 mg on Thursday, Thursday, Thursday and 2.5 mg on other days of the week. 12. Lasix 40 mg p.o. daily was started. DISCONTINUED MEDICATION: Metformin was discontinued. PRINCIPAL PROCEDURES: 1. Chest x-ray with left pulmonary opacities and probably a small pleural effusion, but a technically suboptimal evaluation. Repeat chest x-ray done a day later because of acute shortness of breath shows congestive heart failure with pulmonary edema and small pleural effusions. 2. Head CT with generalized age-related cortical atrophic changes without evidence of acute intracranial abnormality. 3. Retroperitoneal ultrasound with no renal mass, stones, or hydronephrosis. Echogenic renal cortexes. 4. Echocardiogram with overall left ventricular systolic function that is severely impaired with an ejection fraction of 20% 25%. Severe global hypokinesis of LV contractility. Severe aortic stenosis with peak mean pressure gradient of 62 mmHg/41 mmHg and the aortic valve area by continuity equation is 0.49 cm2. Mild aortic regurgitation. Mild mitral regurgitation. Mild abnormal right heart pressures. He is an 86-year-old white male who lives in his own home but has significant mobility issues and is taken care of by his . He has a history of open heart surgery with bypass, status post bilateral fem-pop bypasses with stent, history of toe amputations because of severe peripheral vascular disease and is maintained on Coumadin. He describes a gradually worsening ability to transfer, lack of use of hands because of stiffness and coldness for the last 2 months. He fell last week into the refrigerator as he leaned in to get a soda. In the last couple of days, he has had increasing cough, congestion, and is unable to transfer at all. He was breathing very quickly and it was frightening he and his . He also has diabetes for which he is on metformin. HOSPITAL COURSE: That of initially thinking he had pneumonia. As such, he was started on antibiotics for pneumonia, but he had no fever or elevated white cell count. Chest x-ray was minimally impressive as stated above. He continued to have episodes of acute respiratory failure with hypoxia. He would desaturate down into the low 80s on room air and would need supplemental oxygen. He would have impressive waxing and waning ischemia of hands and feet down into the legs. His knees would turn blue. CT of the head was done to make sure he was not having a subdural. Troponins were done and there was some minimal elevation of 0.13 up to 0.27. BNP was 4236. Repeat chest x-ray showed worsening congestive heart failure. Creatinine was 1.3 on admission and worsened to 1.9. BUN was 31 on admission and worsened to 44. We would give the patient fluid thinking he was dehydrated, but then he would go into CHF so then we would give him Lasix. It was a very difficult balancing act. We noticed that he was having an elevated potassium and a low sodium. Anion gap was borderline high at 12. Carbon dioxide was normal at 25. We were wondering if he was having metabolic acidosis secondary not only to his ischemia, his renal failure but the use of metformin. As such, his metformin was discontinued. Advanced care planning was discussed with the patient. It was quite a long conversation and he is a very interesting historian. Son and were in the room. He wishes to be DO NOT RESUSCITATE, and LIMITED INTERVENTION. It was very difficult for us at times to be able to provide him with care in that he was very suspicious of even simple normal saline. While he recognizes he does not want any aggressive surgeries, he still wants to be treated in the hospital. His hemoglobin was noted to be low and iron studies showed him to have very low iron at 6. We feel he has anemia of chronic disease as well as iron deficiency anemia. Stool was fecal occult blood positive but never melanotic. I am wondering if he has GI bleed, and he definitely has the smell of GI bleed when you enter into the room, but there was never any melanotic stool, or emesis of blood. ASSESSMENT AND PLAN: Overall, we feel that his prognosis is quite poor. We have encouraged him to get palliative care consult with Leila Abebe. His son and are very much in favor of that, but he is hesitating. I have gone ahead and contacted Leila, and Dr. Forman knows I have requested the consultation. I do not think he will be with us in the next few months. His status is tenuous at best with his congestive heart failure, which will then in turn cause acute prerenal azotemia. It definitely causes severe worsening of his ischemia of his limbs where they turn frankly cyanotic at times. He is discharged in stable condition, but with a poor prognosis. He is alert, talkative, but gets easily short of breath with just talking for too long. Temperature is 36.7, heart rate is 101, blood pressure is 122/72, respirations are 16 and he needs 2 liters of nasal cannula to saturate him to 97%. At rest, he is hypoxic with a room air saturation of 84%. With 2 liters, his O2 saturations improve to 97%. He is not ambulatory so no exertional oxygen sats were conducted. I will be ordering home oxygen at 2 liters continuously. He has a regular rate and rhythm but at times it sounds irregular. A harsh systolic murmur that radiates to the carotids. Amazingly enough, he really never has crackles or rhonchi on exam. His abdomen is soft, nontender. There is a bruit in his mid abdomen as well as bilateral femoral arteries. His feet have quite a bit of varicosities on the sides and tops of his feet and that helps to contribute to the appearance of cyanosis. 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 His feet are quite cold, and hands will be intermittently cold. Right now, no edema of his feet or legs. He is unable to sit, and as such will need S ambulance transfer back home. Greater than 30 minutes was spent in coordinating discharge. JOB #: [id number] EXT JOB #:[id number]
== END 2017-09-05 12:41 | disposition home or self-care (01) | DRG 291 ==
LOC: EDUNIT# → ED 11:30 → MS2 17:02
PROVIDERS: ADMIT Internal Medicine; ATTEND Specialist
DX: N28.9 Disorder of kidney and ureter, unspecified (principal); R94.31 Abnormal electrocardiogram [ECG] [EKG]; J18.9 Pneumonia, unspecified organism; D64.9 Anemia, unspecified; I10 Essential (primary) hypertension; I48.91 Unspecified atrial fibrillation; I13.0 Hypertensive heart and chronic kidney disease with heart failure and stage 1 through stage 4 chronic kidney disease, or unspecified chronic kidney disease; I50.43 Acute on chronic combined systolic (congestive) and diastolic (congestive) heart failure; N18.4 Chronic kidney disease, stage 4 (severe); N17.9 Acute kidney failure, unspecified; E87.1 Hypo-osmolality and hyponatremia; E87.2 Acidosis; R64 Cachexia; E11.22 Type 2 diabetes mellitus with diabetic chronic kidney disease; D63.1 Anemia in chronic kidney disease; I50.84 End stage heart failure; E11.51 Type 2 diabetes mellitus with diabetic peripheral angiopathy without gangrene; E87.5 Hyperkalemia; I35.0 Nonrheumatic aortic (valve) stenosis; D50.9 Iron deficiency anemia, unspecified; I25.10 Atherosclerotic heart disease of native coronary artery without angina pectoris; R19.5 Other fecal abnormalities; G89.4 Chronic pain syndrome; R41.0 Disorientation, unspecified; Z68.26 Body mass index [BMI] 26.0-26.9, adult; Z79.891 Long term (current) use of opiate analgesic; Z79.01 Long term (current) use of anticoagulants; Z79.82 Long term (current) use of aspirin; Z79.84 Long term (current) use of oral hypoglycemic drugs; Z79.899 Other long term (current) drug therapy; Z89.429 Acquired absence of other toe(s), unspecified side; Z95.1 Presence of aortocoronary bypass graft; Z95.828 Presence of other vascular implants and grafts; Z66 Do not resuscitate; Z91.81 History of falling; Z99.81 Dependence on supplemental oxygen; Z99.3 Dependence on wheelchair; Z95.2 Presence of prosthetic heart valve
CPT/HCPCS: 36415; 36600; 70450; 71010; 71020; 76770; 80048; 80053; 81001; 81003; 82803; 83540; 83605; 83690; 83735; 83880; 84466; 84484; 85025; 85610; 86850; 86900; 86901; 87040; 87086; 93005; 93306; 96365; 96367; 99284; 99285

== ENCOUNTER 2017-09-05 12:45 | Outpatient (CLI) | payer MEDICARE | END 2017-09-05 12:46 | disposition home or self-care (01) | LOC: EMS 12:45 | PROVIDERS: ATTEND Surgery | DX: I50.84 End stage heart failure (principal); I73.9 Peripheral vascular disease, unspecified; N19 Unspecified kidney failure | CPT/HCPCS: A0425; A0428 ==

== ENCOUNTER 2017-09-05 18:09 | Outpatient (CLI) | payer MEDICARE | END 2017-09-05 23:59 | disposition home or self-care (01) | LOC: EMS 18:09 | PROVIDERS: ATTEND Surgery | DX: R06.02 Shortness of breath (principal) | CPT/HCPCS: A0425; A0427 ==

== ENCOUNTER 2017-09-05 19:18 | Inpatient (IN) | payer MEDICARE ==
--- NOTE | 2017-09-05 19:42 | ED Physician Documentation ---
History of Present Illness - Stated complaint Stated Complaint: SOA - Chief complaint Chief Complaint: Resp - History obtained from History obtained from: Patient, Family, EMS - History of Present Illness Timing: How many days ago (several) Pain level max: 0 Pain level now: 0 Improved by: lasix, oxygen Worsened by: moving - Additonal information Additional information: Patient is an 86-year-old male who was just discharged from the hospital earlier today. 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 When he arrived home today, began to have respiratory distress again. EMS was called, they put him on a nonrebreather and gave him Lasix. At the time he arrived to the emergency department he was doing better from a respiratory standpoint. States he still does not feel well. His does not feel comfortable having him at home like this and does not feel that she can take care of him. Review of Systems Ten Systems: 10 systems reviewed and negative Constitutional: denies: Fever, Chills Ears: denies: Ear pain Nose: denies: Rhinorrhea / runny nose, Congestion Cardiac: denies: Chest pain / pressure Respiratory: reports: Dyspnea GI: denies: Abdominal Pain, Vomiting, Diarrhea Skin: denies: Rash Musculoskeletal: denies: Neck pain, Back pain Neurologic: denies: Headache PD PAST MEDICAL HISTORY - Past Medical History Cardiovascular: Congestive heart failure, Hypertension, Coronary artery disease , Atrial fibrillation Neuro: Peripheral neuropathy Endocrine/Autoimmune: Type 2 diabetes - Past Surgical History Past Surgical History: Yes Cardiovascular: CABG - Present Medications Home Medications: Ambulatory Orders Medication Instructions Recorded Confirmed Atorvastatin [Lipitor] 10 mg PO QPM 10/07/14 09/05/17 Docusate Sodium 250Mg Capsule 250 mg PO BID 10/07/14 09/05/17 [Colace 250Mg Capsule] Losartan [Cozaar] 25 mg PO DAILY 10/07/14 09/05/17 Metoprolol Tartrate 25 mg PO BID 10/07/14 09/05/17 Morphine Sulfate [Morphine Sulfate 30 mg PO BID 10/07/14 09/05/17 Cr] Omeprazole 20 mg PO DAILY 10/07/14 09/05/17 Warfarin [Coumadin] 5 mg PO MOWEFR 10/07/14 09/05/17 Aspirin EC [Ecotrin] 325 mg PO DAILY 09/01/17 09/05/17 Multivitamin [Multivitamins] 1 each PO DAILY 09/01/17 09/05/17 Multivitamin [Theragran] 1 tab PO DAILY 09/01/17 09/05/17 Senna [Senokot] 17.2 mg PO DAILY 09/01/17 09/05/17 Warfarin [Coumadin] 2.5 mg PO SUTUTHSA 09/01/17 09/05/17 Furosemide [Lasix] 40 mg PO DAILY #30 tablet 09/05/17 09/05/17 - Allergies Allergies/Adverse Reactions: Allergies Allergy/AdvReac Type Severity Reaction Status Date / Time hydrocodone Allergy Rash Verified 09/01/17 11:39 lisinopril Allergy Unknown Verified 09/01/17 11:39 oxycodone Allergy Rash Verified 09/01/17 11:39 Penicillins Allergy Rash Verified 09/01/17 11:39 - Social History Does the pt smoke?: No Smoking Status: Never smoker Does the pt drink ETOH?: No - POLST Patient has POLST: Yes PD ED PE NORMAL - Vitals Vital signs reviewed: Yes - General General: Alert and oriented X 3, Well developed/nourished - HEENT HEENT: PERRL, Moist mucous membranes, Pharynx benign - Neck Neck: Supple, no meningeal sign - Cardiac Cardiac: Other (tachycardic) - Respiratory Respiratory: No respiratory distress, Other (rhonchi B) - Abdomen Abdomen: Soft, Non tender, Non distended - Back Back: No spinal TTP - Derm Derm: Warm and dry, No rash - Extremities Extremities: Other (2+ BLE edema) - Neuro Neuro: Alert and oriented X 3 - Psych Psych: Normal mood, Normal affect Results - Vitals Vitals: Vital Signs - 24 hr 09/05/17 09/05/17 19:15 19:36 Temperature 36.0 C L Heart Rate 128 H 126 H Respiratory 27 H 27 H Rate Blood Pressure 100/84 H 91/43 L O2 Saturation 100 97 Oxygen O2 Source Nasal cannula Oxygen Flow Rate 3 - EKG (time done) 1925 Rate: Rate (enter#) (126) Rhythm: Other (junctional tachycardia) Hensley: Normal Intervals: Normal TN QRS: Normal Ischemia: ST depression Computer interpretation: Agree with computer - Rads (name of study) cxr Radiology: Prelim report reviewed, EMP read contemporaneously, See rad report ( Increasing bibasilar infiltrates and effusions. ) PD MEDICAL DECISION MAKING - ED course Complexity details: reviewed old records, reviewed results, re-evaluated patient , considered differential, d/w patient, d/w family, d/w software sales consultant ED course: Patient is an 86-year-old male who presents to the emergency department with what appears to be worsening of his CHF as well as his his cardiac dysfunction. He did improve with Lasix en route. Will place him back in the hospital for further care. Discussed the case with Dr. Osullivan for admission. Patient may end up needing placement at a [facility] facility, hospice or group home. This document was made in part using voice recognition software. While efforts are made to proofread this document, sound alike and grammatical errors may occur. Departure - Departure Disposition: 66 [facility] DC/Xfer Clinical Impression: SOB (shortness of breath), Acute on chronic systolic (congestive) heart failure Congestive heart failure Qualifiers: Congestive heart failure type: unspecified congestive heart failure type Congestive heart failure chronicity: acute on chronic Qualified Code(s): I50.9 - Heart failure, unspecified Condition: Stable Discharge Date/Time: 09/05/17 21:10
[2017-09-05] MEDS ORDERED: PROMETHAZINE 25 MG/1 ML VIAL IM PRN (19:56)
[2017-09-05] MEDS ORDERED: SODIUM CHLORIDE FLUSH 0.9% 10 ML SYRINGE IVP PRN (19:56)
[2017-09-05] MEDS ORDERED: ACETAMINOPHEN 325 MG TABLET PO PRN (19:56)
[2017-09-05] MEDS ORDERED: oxyCODONE 5 MG TABLET PO PRN ×2 (19:56)
[2017-09-05] MEDS ORDERED: PROCHLORPERAZINE 10 MG/2 ML VIAL IVP PRN (19:56)
[2017-09-05] MEDS ORDERED: ONDANSETRON 4 MG/2 ML VIAL IVP PRN (19:56)
[2017-09-05] MEDS ORDERED: MORPHINE 2 MG/ML SYRINGE IVP PRN (19:56)
[2017-09-05] MEDS ORDERED: WARFARIN 2.5 MG TABLET PO SCH (20:00)
[2017-09-05 20:17] LABS: BASOPHILS % (AUTO) 0.5 %; EOSINOPHILS # (AUTO) 0.1 10^3/uL (0.0-0.7); EOSINOPHILS % (AUTO) 1.1 %; HCT - HEMATOCRIT 28.4 % (42.0-52.0); HGB - HEMOGLOBIN 8.8 g/dL (14.0-18.0); LYMPHOCYTES # (AUTO) 0.8 10^3/uL (1.5-3.5); LYMPHOCYTES % (AUTO) 10.1 %; MEAN CORPUSCULAR HEMOGLOBIN 25.4 pg (27.0-31.0); MEAN CORPUSCULAR VOLUME 81.9 fL (80.0-94.0); MEAN PLATELET VOLUME 7.7 fL (7.4-11.4); MONOCYTES # (AUTO) 0.7 10^3/uL (0.0-1.0); MONOCYTES % (AUTO) 8.6 %; NEUTROPHILS # (AUTO) 6.7 10^3/uL (1.5-6.6); NEUTROPHILS % (AUTO) 79.7 %; NUCLEATED RED BLOOD CELLS AUTO 0.1 /100WBC; RED BLOOD COUNT 3.47 10^6/uL (4.70-6.10); RED CELL DISTRIBUTION WIDTH 15.9 % (12.0-15.0); UNCORRECTED WHITE BLOOD COUNT 8.4 x10^3/uL; WHITE BLOOD COUNT 8.4 x10^3/uL (4.8-10.8)
--- NOTE | 2017-09-05 20:33 | XRAY Preliminary Report ---
Exam: XR CHEST 1 VIEW IMPRESSION: Increasing bibasilar infiltrates and effusions. [facility] SITE ID: [id number]
--- NOTE | 2017-09-05 20:36 | XRAY Report ---
EXAM: CHEST RADIOGRAPHY EXAM DATE: 09/05/2017 08:19 PM. CLINICAL HISTORY: Dyspnea. COMPARISON: 09/02/2017. TECHNIQUE: 1 view. FINDINGS: Lungs/Pleura: Bibasilar infiltrates and effusions have increased. No pneumothorax is seen. Mediastinum: Postoperative changes are stable. Other: None. IMPRESSION: Increasing bibasilar infiltrates and effusions. [facility] Referring Provider Line: [phone] SITE ID: [id number]
[2017-09-05 20:42] LABS: ALBUMIN/GLOBULIN RATIO 1.3 (1.0-2.2); BILIRUBIN,TOTAL 0.4 mg/dL (0.2-1.0); CREATININE 1.2 mg/dL (0.6-1.2); POTASSIUM 4.1 mmol/L (3.5-5.0); TOTAL PROTEIN 6.2 g/dL (6.7-8.2)
[2017-09-05] MEDS ORDERED: MORPHINE ER 15 MG TABLET PO SCH (21:00)
[2017-09-05] MEDS ORDERED: ATORVASTATIN 10 MG TABLET PO SCH (21:00)
[2017-09-05] MEDS ORDERED: METOPROLOL TARTRATE 50 MG TABLET PO SCH (21:00)
[2017-09-05] MEDS ORDERED: FUROSEMIDE 40 MG/4 ML VIAL IVP SCH (21:00)
--- NOTE | 2017-09-05 21:01 | HISTORY & PHYSICAL EXAMINATION ---
Chief Complaint - Chief Complaint Chief Complaint: Shortness of air History of Present Illness - Admitted From Admitted From:: Emergency department - History Obtained From Records Reviewed: Yes History obtained from: Patient Exam Limitations: None - History of Present Illness HPI Comment/Other: Patient is an 86-year-old gentleman with a past medical history significant for coronary artery disease status post CABG, peripheral arterial disease status post bilateral femoropopliteal bypass surgery with stents and toe amputation currently on Coumadin, diabetes, hypertension, atrial fibrillation, systolic heart failure with ejection fraction of 20-25% and severe aortic stenosis who presents to the emergency department with a chief complaint of shortness of air. The patient was recently hospitalized at [facility] from 09/03/2017 till 09/05/2017 and was just discharged home this morning. The patient was hospitalized for pneumonia and CHF exacerbation and had a very tenuous course in the hospital where he would develop acute dyspnea and required several doses of IV Lasix. Long discussion was had with patient and his family regarding goals of care and patient did agree to be DNR and was open to a palliative care consult but was not yet ready to go hospice. The patient was discharged home earlier today and what appeared to be stable condition. The patient states that on returning home he felt well for about 6 hours and then states he began feeling of fluttering in his chest and became very short of air. The patient's became very concerned as the patient was breathing very hard and could not catch his breath. The patient states that as his shortness of air became worse and he could not catch his breath he became panicked and asked his to call 911. The patient denies any fevers, chills , increased cough or chest pain. The patient did admit to orthopnea and feeling extremely fatigued. Patient denies any headaches, blurred vision, runny nose, sore throat, nasal congestion, neck pain, difficulty swallowing, abdominal pain, nausea, vomiting, diarrhea, constipation, urinary urgency, urinary frequency, dysuria, joint pain , joint stiffness, joint swelling, back pain, muscle aches, changes in appetite , recent unintentional weight loss or weight gain and he denies any focal neurologic deficits. On the arrival of EMS to the patient's home the patient was in respiratory distress and was saturating at 75% on room air. EMS placed him on a nonrebreather mask and his oxygen saturation did come up to 95%. Per EMS the patient's respiratory rate was in the 50s when he did receive a dose of Lasix 40 mg. On arrival to the emergency department the patient was still quite tachypneic with a respiratory rate in the high 20s-30s. The patient's oxygen saturation had improved significantly as he was up to 100% on 2-3 L. The patient was very tachycardic in the 120s and was borderline hypotensive. The patient appeared quite fatigued and drowsy. His extremities were cold and feet were cyanotic. The patient's lab work revealed a troponin of 0.36 which was mildly elevated from his baseline and an elevated BNP of 4687 which was increased from 3 days earlier. The patient's chest x-ray revealed increasing bibasilar infiltrates and effusions likely secondary to CHF exacerbation. The patient also had crackles on examination and appeared very short of air. The patient was admitted to the medical vora for acute respiratory failure with hypoxia secondary to CHF exacerbation. History - Past Medical History Cardiovascular: reports: Congestive heart failure (Ejection fraction of 20-25%) , Hypertension, High cholesterol, Coronary artery disease, Peripheral Vascular Disease (Peripheral arterial disease status post bilateral femoropopliteal bypass and multiple stents on Coumadin), Atrial fibrillation, Valve disorder ( Severe aortic stenosis) Neuro: reports: Peripheral neuropathy Endocrine/Autoimmune: reports: Type 2 diabetes - Past Surgical History Cardiovascular: reports: CABG, Vascular surgery (Arterial stents in the LEs ), Fempop bypass (Bilateral ) - Family & Social History Family History: Mother: , Father: Family History Comment/Other: No family history of diabetes, heart disease of cancer. Living arrangement: At home Living Situation: With spouse/s.o. Social History Notes: The patient lives at home with his . He no longer drives. Patient has never been a smoker, drinker or user of drugs. - POLST Patient has POLST: Yes POLST Status: DNR Meds/Allgy - Home Medications Home Medications: Ambulatory Orders Medication Instructions Recorded Confirmed Atorvastatin [Lipitor] 10 mg PO QPM 10/07/14 09/05/17 Docusate Sodium 250Mg Capsule 250 mg PO BID 10/07/14 09/05/17 [Colace 250Mg Capsule] Losartan [Cozaar] 25 mg PO DAILY 10/07/14 09/05/17 Metoprolol Tartrate 25 mg PO BID 10/07/14 09/05/17 Morphine Sulfate [Morphine Sulfate 30 mg PO BID 10/07/14 09/05/17 Cr] Omeprazole 20 mg PO DAILY 10/07/14 09/05/17 Warfarin [Coumadin] 5 mg PO MOWEFR 10/07/14 09/05/17 Aspirin EC [Ecotrin] 325 mg PO DAILY 09/01/17 09/05/17 Multivitamin [Multivitamins] 1 each PO DAILY 09/01/17 09/05/17 Multivitamin [Theragran] 1 tab PO DAILY 09/01/17 09/05/17 Senna [Senokot] 17.2 mg PO DAILY 09/01/17 09/05/17 Warfarin [Coumadin] 2.5 mg PO SUTUTHSA 09/01/17 09/05/17 Furosemide [Lasix] 40 mg PO DAILY #30 tablet 09/05/17 09/05/17 - Allergies Allergies/Adverse Reactions: Allergies Allergy/AdvReac Type Severity Reaction Status Date / Time hydrocodone Allergy Rash Verified 09/01/17 11:39 lisinopril Allergy Unknown Verified 09/01/17 11:39 oxycodone Allergy Rash Verified 09/01/17 11:39 Penicillins Allergy Rash Verified 09/01/17 11:39 Review of Systems - Other Findings Other Findings: A comprehensive review of systems was performed the pertinent positives and negatives are stated above in the HPI and the remainder of the review of systems is negative. Exam - Vital Signs Reviewed Vital Signs: Yes Vital Signs: Vital Signs x48h Pulse Resp BP Pulse Ox 09/05/17 20:32 122 H 27 H 95/66 100 - Physical Exam General Appearance: positive: Moderate distress (Tachypneic with use of accessory muscles of breathing), Anxious, Other (Fatigued and drowsy) Eyes Bilateral: positive: Normal inspection, PERRL, EOMI, No lid inflammation, Conjunctivae nml, No scleral icterus ENT: positive: ENT inspection nml, Pharynx nml, No signs of dehydration. negative: Purulent nasal drainage, Pharyngeal erythema, Oral lesions Neck: positive: Nml inspection, Thyroid nml, Trachea midline. negative: Thyromegaly, Lymphadenopathy (R), Lymphadenopathy (L), Tracheal deviation Respiratory: positive: Chest non-tender, Rales (Bilateral care home up the lungs) , Other (Tachypneic and using accessory muscles of breathing). negative: Wheezes, Rhonchi Cardiovascular: positive: Irregularly irregular, Tachycardia, Systolic murmur Peripheral Pulses: positive: 2+ Abdomen: positive: Non-tender, No organomegaly, Nml bowel sounds, No distention. negative: Guarding, Rebound, Hepatomegaly Back: positive: Nml inspection. negative: CVA tenderness (R), CVA tenderness (L ) Skin: positive: No rash, Cyanosis (Bilateral feet), Other (Extremities cool to touch). negative: Diaphoresis, Pallor Extremities: positive: Non-tender, Full ROM, Pedal edema (Bilateral shiny legs with 2+ pitting edema) Neurologic/Psychiatric: positive: Oriented x3, CN's nml (2-12), Motor nml, Mood/ affect nml, Sensory loss (Bilateral feet), Other (Drowsy) Conclusion/Plan - Problem List (1) Acute respiratory failure with hypoxia Conclusion/Plan: Patient presented with acute respiratory failure with hypoxia. Patient was just discharged from the hospital after admission for pneumonia and CHF exacerbation. Upon returning home he felt well but 6 hours after returning home he became acutely short of air and could not catch his breath. The patient was found to have hypoxia with oxygen saturation of 75% on presentation of EMS and required a nonrebreather to improve his oxygen saturation. On presentation the patient had significant crackles on examination, he had edema in his legs, he had orthopnea, he had increasing infiltrates on chest x-ray consistent with worsening CHF and had an increased BNP of 4600. Patient's acute respiratory failure appeared likely to be secondary to CHF exacerbation in the setting of patient having severe systolic failure with EF of 20-25% and severe aortic stenosis. Plan: IV Lasix 40 mg twice daily Strict I's and O's 2 L fluid restriction Continue metoprolol, Cozaar Start patient on Aldactone Monitor BNP, daily weights Consult palliative care if patient is still hospitalized on Thursday (2) Acute exacerbation of CHF (congestive heart failure) Conclusion/Plan: Patient presented with acute respiratory failure with hypoxia. Patient was just discharged from the hospital after admission for pneumonia and CHF exacerbation. Upon returning home he felt well but 6 hours after returning home he became acutely short of air and could not catch his breath. The patient was found to have hypoxia with oxygen saturation of 75% on presentation of EMS and required a nonrebreather to improve his oxygen saturation. On presentation the patient had significant crackles on examination, he had edema in his legs, he had orthopnea, he had increasing infiltrates on chest x-ray consistent with worsening CHF and had an increased BNP of 4600. Patient's acute respiratory failure appeared likely to be secondary to CHF exacerbation in the setting of patient having severe systolic failure with EF of 20-25% and severe aortic stenosis. Plan: IV Lasix 40 mg twice daily Strict I's and O's 2 L fluid restriction Continue metoprolol, Cozaar Start patient on Aldactone Monitor BNP, daily weights Consult palliative care if patient is still hospitalized on Thursday Qualifiers: Congestive heart failure type: systolic Qualified Code(s): I50.23 - Acute on chronic systolic (congestive) heart failure (3) Diabetes Conclusion/Plan: Patient has history of diabetes and on presentation patient's blood sugar is elevated at 162. Patient's most recent hemoglobin A1c is 4.6 which would suggest that he was hypoglycemic in the past however this may have been when he was on medications currently he is not on any medications. Plan: Patient will be placed on low dose sliding scale insulin as needed Check blood glucose before meals at bedtime Check hemoglobin A1c Qualifiers: Diabetes mellitus type: type 2 (4) PVD (peripheral vascular disease) Conclusion/Plan: Patient has history of peripheral arterial disease status post bilateral femoropopliteal bypass and multiple stents in bilateral lower extremities. Patient is currently on Coumadin and most recent INR was therapeutic at 2.1. The patient does have cyanotic looking feet this is likely secondary to his peripheral arterial disease in combination with severe aortic stenosis and reduced ejection fraction of 20-25% causing a low output state. Plan: Patient will be continued on his home dose of Coumadin (5) History of coronary artery disease Conclusion/Plan: The patient has history of coronary disease status post CABG. Currently the patient is on optimal treatment with aspirin, metoprolol, Cozaar and Lipitor. Patient did not present with chest pain but rather shortness of air. His troponin was mildly abnormal at 0.36 which was slightly elevated from most recent troponin from just 3 days ago of 0.27. The patient's EKG did show some deep ST depressions in the lateral leads which were there on previous EKG. The patient likely does have some ischemia but given his age and comorbid conditions it is unlikely that patient would be a good candidate for any intervention at this time. We will continue to treat the patient medically unless family decides that they want more aggressive intervention. At this point patient does not appear to want more aggressive intervention and is more focused on being comfortable and symptomatic management of his disease. - Lab Results Lab results reviewed: Yes Fish Bones: 09/05/17 20:12 09/05/17 20:12 Other Lab Results: Laboratory Results WBC 8.4 x10^3/uL (4.8-10.8) 09/05/17 20:12 RBC 3.47 10^6/uL (4.70-6.10) L 09/05/17 20:12 Hgb 8.8 g/dL (14.0-18.0) L 09/05/17 20:12 Hct 28.4 % (42.0-52.0) L 09/05/17 20:12 MCV 81.9 fL (80.0-94.0) 09/05/17 20:12 MCH 25.4 pg (27.0-31.0) L 09/05/17 20:12 MCHC 31.0 g/dL (32.0-36.0) L 09/05/17 20:12 RDW 15.9 % (12.0-15.0) H 09/05/17 20:12 Plt Count 228 10^3/uL (130-450) 09/05/17 20:12 MPV 7.7 fL (7.4-11.4) 09/05/17 20:12 Neut # 6.7 10^3/uL (1.5-6.6) H 09/05/17 20:12 Lymph # 0.8 10^3/uL (1.5-3.5) L 09/05/17 20:12 Waller # 0.7 10^3/uL (0.0-1.0) 09/05/17 20:12 Eos # 0.1 10^3/uL (0.0-0.7) 09/05/17 20:12 Baso # 0.0 10^3/uL (0.0-0.1) 09/05/17 20:12 Absolute Nucleated RBC 0.01 x10^3/uL 09/05/17 20:12 Nucleated RBC % 0.1 /100WBC 09/05/17 20:12 Sodium 133 mmol/L (135-145) L 09/05/17 20:12 Potassium 4.1 mmol/L (3.5-5.0) 09/05/17 20:12 Chloride 94 mmol/L (101-111) L 09/05/17 20:12 Carbon Dioxide 27 mmol/L (21-32) 09/05/17 20:12 Anion Gap 12.0 (6-13) 09/05/17 20:12 BUN 31 mg/dL (6-20) H 09/05/17 20:12 Creatinine 1.2 mg/dL (0.6-1.2) 09/05/17 20:12 Estimated GFR (MDRD) 57 (>89) L 09/05/17 20:12 Glucose 162 mg/dL (70-100) H 09/05/17 20:12 Calcium 9.0 mg/dL (8.5-10.3) 09/05/17 20:12 Total Bilirubin 0.4 mg/dL (0.2-1.0) 09/05/17 20:12 AST 25 IU/L (10-42) 09/05/17 20:12 ALT 15 IU/L (10-60) 09/05/17 20:12 Alkaline Phosphatase 69 IU/L (42-121) 09/05/17 20:12 Troponin I 0.36 ng/mL (<0.49) 09/05/17 20:12 B-Natriuretic Peptide 4687.0 pg/mL (5-100) H 09/05/17 20:12 Total Protein 6.2 g/dL (6.7-8.2) L 09/05/17 20:12 Albumin 3.5 g/dL (3.2-5.5) 09/05/17 20:12 Globulin 2.7 g/dL (2.1-4.2) 09/05/17 20:12 Albumin/Globulin Ratio 1.3 (1.0-2.2) 09/05/17 20:12 Lipase 20 U/L (22-51) L 09/05/17 20:12 - Diagnostic Imaging Results Diagnostic Imaging Results: positive: Final report reviewed - EKG Results EKG Interpreted Independently: Yes EKG Findings: ST depressions in leads V4 through V6 unchanged from prior EKG. junctional tachycardia. Issues/Core Measures - Anticipated LOS Anticipated Stay Length: 2 or more midnights - DVT/VTE - Prophylaxis VTE/DVT Device ordered at admit?: Yes
[2017-09-05] MEDS: SODIUM CHLORIDE FLUSH 0.9% 10 ML SYRINGE IVP SCH (22:20)
[2017-09-05] MEDS ORDERED: LORazepam 2 MG/ML SYRINGE IVP SCH (22:27)
--- NOTE | 2017-09-06 06:26 | CT Preliminary Report ---
Exam: CT HEAD W/O IMPRESSION: Generalized age-related cortical atrophic changes without evidence of acute intracranial abnormality. [facility] SITE ID: [id number]
--- NOTE | 2017-09-06 06:31 | CT Report ---
EXAM: CT HEAD EXAM DATE: 09/06/2017 06:14 AM. CLINICAL HISTORY: Altered mental status. COMPARISON: CT from 09/02/2017. TECHNIQUE: Multiaxial CT images were obtained from the foramen magnum to the vertex. IV contrast: Non e. Reformats: Coronal. In accordance with CT protocol optimization, one or more of the following dose reduction techniques w ere utilized for this exam: automated exposure control, adjustment of mA and/or KV based on patient s ize, or use of iterative reconstructive technique. FINDINGS: Parenchyma: No intraparenchymal hemorrhage. No evidence of mass, midline shift, or CT findings of acu te infarction. Beverly-white differentiation is distinct. Mild diffuse chronic microangiopathic white ma tter changes are evident. Extraaxial Spaces: Normal for age. No subdural or epidural collections identified. Ventricles: The ventricles and cortical sulci are moderately enlarged, consistent with age-related ti ssue loss. Sinuses and orbits: Imaged paranasal sinuses, orbits, and mastoids show no significant abnormality. Bones: No evidence of fracture or calvarial defect. Other: Extensive intracranial atherosclerosis is noted. IMPRESSION: Generalized age-related cortical atrophic changes without evidence of acute intracranial abnormality. [facility] Referring Provider Line: [phone] SITE ID: [id number]
[2017-09-06 06:57] LABS: BASOPHILS # (AUTO) 0.1 10^3/uL (0.0-0.1); BASOPHILS % (AUTO) 0.7 %; EOSINOPHILS # (AUTO) 0.1 10^3/uL (0.0-0.7); EOSINOPHILS % (AUTO) 1.4 %; HCT - HEMATOCRIT 30.8 % (42.0-52.0); HGB - HEMOGLOBIN 9.5 g/dL (14.0-18.0); LYMPHOCYTES # (AUTO) 2.7 10^3/uL (1.5-3.5); MEAN CORPUSCULAR HEMOGLOBIN 25.6 pg (27.0-31.0); MEAN CORPUSCULAR HGB CONC 30.9 g/dL (32.0-36.0); MEAN PLATELET VOLUME 8.1 fL (7.4-11.4); MONOCYTES # (AUTO) 0.9 10^3/uL (0.0-1.0); MONOCYTES % (AUTO) 9.5 %; NEUTROPHILS # (AUTO) 5.8 10^3/uL (1.5-6.6); NEUTROPHILS % (AUTO) 60.4 %; NUCLEATED RED BLOOD CELLS AUTO 0.1 /100WBC; RED BLOOD COUNT 3.71 10^6/uL (4.70-6.10); RED CELL DISTRIBUTION WIDTH 16.1 % (12.0-15.0); UNCORRECTED WHITE BLOOD COUNT 9.6 x10^3/uL; WHITE BLOOD COUNT 9.6 x10^3/uL (4.8-10.8)
[2017-09-06] MEDS ORDERED: PANTOPRAZOLE 40 MG TABLET PO SCH (07:00)
[2017-09-06] MEDS ORDERED: LORazepam 2 MG/ML SYRINGE IVP PRN (07:02)
[2017-09-06] MEDS ORDERED: ATROPINE 1% OPHTH DROPS 2 ML SL PRN (07:02)
[2017-09-06] MEDS ORDERED: MORPHINE SOL 10 MG/0.5 ML SYRINGE PO PRN (07:02)
[2017-09-06] MEDS ORDERED: CARBOXYMETHYLCELLULOSE OPHTH DROPS EACHEYE PRN (07:02)
[2017-09-06 07:05] LABS: PT - PROTHROMBIN TIME 49.1 secs (9.9-12.6)
[2017-09-06 07:26] LABS: INR 4.6 (0.8-1.2)
[2017-09-06 07:42] VITALS: BP 93/50
[2017-09-06] MEDS ORDERED: POTASSIUM CHLORIDE 20 MEQ TABLET PO SCH (08:00)
[2017-09-06] MEDS ORDERED: INSULIN ASPART 300 UNIT/3 ML PEN SUBQ SCH (08:00)
[2017-09-06] MEDS ORDERED: SPIRONOLACTONE 25 MG TABLET PO SCH (09:00)
[2017-09-06] MEDS ORDERED: LOSARTAN 50 MG TABLET PO SCH (09:00)
[2017-09-06] MEDS ORDERED: POLYETHYLENE GLYCOL 3350 17 GM PACKET PO SCH (09:00)
[2017-09-06] MEDS ORDERED: MULTIVITAMIN TABLET PO SCH (09:00)
[2017-09-06] MEDS ORDERED: ASPIRIN EC 325 MG TABLET PO SCH (09:00)
--- NOTE | 2017-09-06 10:17 | PROVIDER PROGRESS NOTE ---
Subjective - Prog Note Date Prog Note Date: 09/06/17 Prog Note Time: 10:24 - Subjective Subjective: since last nights admission for acute systolic CHF with acute repiratory failure , he had a sudden change with hemiplegia and deviated EOM. On exam he's had a stroke. We are not going to confirm with CT since family wants us to transition Current Medications - Current Medications Current Medications: Active Medications Acetaminophen (Tylenol) 650 mg PO Q4HR PRN PRN Reason: Pain 1 to 4 Atropine Sulfate (Isopto Atropine 1% Ophth Drops) 1 - 4 drops SL Q2H PRN PRN Reason: Excessive secretions Carboxymethylcellulose (Refresh 1% Ophth Drops) 1 drops EACHEYE QID PRN PRN Reason: Dry Eye Lorazepam (Ativan Inj) 1 mg IVP Q2H PRN PRN Reason: Anxiety/Agitation Morphine Sulfate (Roxanol) 10 mg PO Q2HR PRN PRN Reason: PAIN Ondansetron HCl (Zofran Inj) 4 mg IVP Q6HR PRN PRN Reason: Nausea / Vomiting Prochlorperazine Edisylate (Compazine Inj) 10 mg IVP Q6HR PRN PRN Reason: Nausea / Vomiting Promethazine HCl (Phenergan Inj) 25 mg IM Q6HR PRN PRN Reason: Nausea / Vomiting Sodium Chloride (Normal Saline Flush 0.9%) 10 ml IVP PRN PRN PRN Reason: NEEDED PER PROVIDER ORDERS Last Admin: 09/05/17 23:23 Dose: 10 ml Sodium Chloride (Normal Saline Flush 0.9%) 10 ml IVP Q8HR [facility] Last Admin: 09/05/17 22:20 Dose: 10 ml Atorvastatin [Lipitor] 10 mg PO QPM 10/07/14 Docusate Sodium 250Mg Capsule [Colace 250Mg Capsule] 250 mg PO BID 10/07/14 Losartan [Cozaar] 25 mg PO DAILY 10/07/14 Metoprolol Tartrate 25 mg PO BID 10/07/14 Morphine Sulfate [Morphine Sulfate Cr] 30 mg PO BID 10/07/14 Omeprazole 20 mg PO DAILY 10/07/14 Warfarin [Coumadin] 5 mg PO MOWEFR 10/07/14 Aspirin EC [Ecotrin] 325 mg PO DAILY 09/01/17 Multivitamin [Multivitamins] 1 each PO DAILY 09/01/17 Multivitamin [Theragran] 1 tab PO DAILY 09/01/17 Senna [Senokot] 17.2 mg PO DAILY 09/01/17 Warfarin [Coumadin] 2.5 mg PO SUTUTHSA 09/01/17 Objective - Vital Signs/Intake & Output Reviewed Vital Signs: Yes Vital Signs: Vital Signs x48h Temp Pulse Resp BP BP Pulse Ox 09/06/17 07:41 36.1 C L 89 18 93/50 L 100 09/06/17 06:16 87 30 H 100/69 100 09/06/17 04:20 36.5 C 72 20 85/55 L 100 Intake & Output: Intake & Output 09/03/17 09/04/17 09/05/17 09/06/17 23:59 23:59 23:59 23:59 Intake Total 100 Output Total 280 300 Balance -180 -300 - Objective General Appearance: positive: No acute distress, Other (unresponsive, with frowning fascies, crinkling eyelids) Eyes Bilateral: negative: EOMI (right deviation) Neck: positive: Carotid bruit. negative: Stiff neck Respiratory: positive: Rales, Rhonchi, Other (mild tachypnea, open mouth breathing) Cardiovascular: positive: Regular rate & rhythm, Systolic murmur. negative: Gallop/S4, Friction rub Abdomen: positive: No distention, Abnml bowel sounds (quiet, almost none). negative: Guarding, Rebound Skin: positive: Cyanosis, Pallor, Other (cold, cold skin) Extremities: positive: Pedal edema (mild) Neurologic/Psychiatric: positive: Disoriented to person, Disoriented to place, Disoriented to time, Weakness. negative: CN's nml (2-12), Motor nml - Lab Results Fish Bones: 09/06/17 06:25 09/05/17 20:12 Other Labs: Lab Results x24hrs 09/06/17 09/06/17 09/06/17 Range/Units 06:25 06:25 06:25 WBC (4.8-10.8) x10^3/uL RBC (4.70-6.10) 10^6/uL Hgb (14.0-18.0) g/dL Hct (42.0-52.0) % MCV (80.0-94.0) fL MCH (27.0-31.0) pg MCHC (32.0-36.0) g/dL RDW (12.0-15.0) % Plt Count (130-450) 10^3/uL MPV (7.4-11.4) fL Neut # (1.5-6.6) 10^3/uL Lymph # (1.5-3.5) 10^3/uL [place] # (0.0-1.0) 10^3/uL Eos # (0.0-0.7) 10^3/uL Baso # (0.0-0.1) 10^3/uL Absolute Nucleated RBC x10^3/uL Nucleated RBC % /100WBC PT 49.1 H (9.9-12.6) secs INR 4.6 H* (0.8-1.2) Sodium (135-145) mmol/L Potassium (3.5-5.0) mmol/L Chloride (101-111) mmol/L Carbon Dioxide (21-32) mmol/L Anion Gap (6-13) BUN (6-20) mg/dL Creatinine (0.6-1.2) mg/dL Estimated GFR (MDRD) (>89) Glucose (70-100) mg/dL Calcium (8.5-10.3) mg/dL Total Bilirubin (0.2-1.0) mg/dL AST (10-42) IU/L ALT (10-60) IU/L Alkaline Phosphatase (42-121) IU/L Troponin I 0.36 (<0.49) ng/mL B-Natriuretic Peptide 6802.0 H (5-100) pg/mL Total Protein (6.7-8.2) g/dL Albumin (3.2-5.5) g/dL Globulin (2.1-4.2) g/dL Albumin/Globulin Ratio (1.0-2.2) Lipase (22-51) U/L 09/06/17 09/05/17 09/05/17 Range/Units 06:25 20:12 20:12 WBC 9.6 (4.8-10.8) x10^3/uL RBC 3.71 L (4.70-6.10) 10^6/uL Hgb 9.5 L (14.0-18.0) g/dL Hct 30.8 L (42.0-52.0) % MCV 83.0 (80.0-94.0) fL MCH 25.6 L (27.0-31.0) pg MCHC 30.9 L (32.0-36.0) g/dL RDW 16.1 H (12.0-15.0) % Plt Count 272 (130-450) 10^3/uL MPV 8.1 (7.4-11.4) fL Neut # 5.8 (1.5-6.6) 10^3/uL Lymph # 2.7 (1.5-3.5) 10^3/uL [place] # 0.9 (0.0-1.0) 10^3/uL Eos # 0.1 (0.0-0.7) 10^3/uL Baso # 0.1 (0.0-0.1) 10^3/uL Absolute Nucleated RBC 0.01 x10^3/uL Nucleated RBC % 0.1 /100WBC PT (9.9-12.6) secs INR (0.8-1.2) Sodium (135-145) mmol/L Potassium (3.5-5.0) mmol/L Chloride (101-111) mmol/L Carbon Dioxide (21-32) mmol/L Anion Gap (6-13) BUN (6-20) mg/dL Creatinine (0.6-1.2) mg/dL Estimated GFR (MDRD) (>89) Glucose (70-100) mg/dL Calcium (8.5-10.3) mg/dL Total Bilirubin (0.2-1.0) mg/dL AST (10-42) IU/L ALT (10-60) IU/L Alkaline Phosphatase (42-121) IU/L Troponin I 0.36 (<0.49) ng/mL B-Natriuretic Peptide 4687.0 H (5-100) pg/mL Total Protein (6.7-8.2) g/dL Albumin (3.2-5.5) g/dL Globulin (2.1-4.2) g/dL Albumin/Globulin Ratio (1.0-2.2) Lipase (22-51) U/L 09/05/17 09/05/17 Range/Units 20:12 20:12 WBC 8.4 (4.8-10.8) x10^3/uL RBC 3.47 L (4.70-6.10) 10^6/uL Hgb 8.8 L (14.0-18.0) g/dL Hct 28.4 L (42.0-52.0) % MCV 81.9 (80.0-94.0) fL MCH 25.4 L (27.0-31.0) pg MCHC 31.0 L (32.0-36.0) g/dL RDW 15.9 H (12.0-15.0) % Plt Count 228 (130-450) 10^3/uL MPV 7.7 (7.4-11.4) fL Neut # 6.7 H (1.5-6.6) 10^3/uL Lymph # 0.8 L (1.5-3.5) 10^3/uL [place] # 0.7 (0.0-1.0) 10^3/uL Eos # 0.1 (0.0-0.7) 10^3/uL Baso # 0.0 (0.0-0.1) 10^3/uL Absolute Nucleated RBC 0.01 x10^3/uL Nucleated RBC % 0.1 /100WBC PT (9.9-12.6) secs INR (0.8-1.2) Sodium 133 L (135-145) mmol/L Potassium 4.1 (3.5-5.0) mmol/L Chloride 94 L (101-111) mmol/L Carbon Dioxide 27 (21-32) mmol/L Anion Gap 12.0 (6-13) BUN 31 H (6-20) mg/dL Creatinine 1.2 (0.6-1.2) mg/dL Estimated GFR (MDRD) 57 L (>89) Glucose 162 H (70-100) mg/dL Calcium 9.0 (8.5-10.3) mg/dL Total Bilirubin 0.4 (0.2-1.0) mg/dL AST 25 (10-42) IU/L ALT 15 (10-60) IU/L Alkaline Phosphatase 69 (42-121) IU/L Troponin I (<0.49) ng/mL B-Natriuretic Peptide (5-100) pg/mL Total Protein 6.2 L (6.7-8.2) g/dL Albumin 3.5 (3.2-5.5) g/dL Globulin 2.7 (2.1-4.2) g/dL Albumin/Globulin Ratio 1.3 (1.0-2.2) Lipase 20 L (22-51) U/L Assessment/Plan - Problem List (1) Stroke determined by clinical assessment Impression: After he was admitted for the acute respiratory failure, had a change in mental status and on exam has a stroke. This is a known complication of aortic stenosis , but he already also has domumented severe peripheral vascular disease with an EF of 20%. So is the ischemic or from ? Point is moot. His and son are here. They would like for us to treat him with only comfort measures. I feel that is imminent. they have identified [facility] as the facility to release him to if he does when they are not here. (2) Acute respiratory failure with hypoxia Impression: Patient presented with acute respiratory failure with hypoxia. Patient was just discharged from the hospital after admission for pneumonia and CHF exacerbation. Upon returning home he felt well but 6 hours after returning home he became acutely short of air and could not catch his breath. The patient was found to have hypoxia with oxygen saturation of 75% on presentation of EMS and required a nonrebreather to improve his oxygen saturation. On presentation the patient had significant crackles on examination, he had edema in his legs, he had orthopnea, he had increasing infiltrates on chest x-ray consistent with worsening CHF and had an increased BNP of 4600. Patient's acute respiratory failure appeared likely to be secondary to CHF exacerbation in the setting of patient having severe systolic failure with EF of 20-25% and severe aortic stenosis. Plan was IV Lasix 40 mg twice daily Strict I's and O's 2 L fluid restriction Continue metoprolol, Cozaar Start patient on Aldactone Monitor BNP, daily weights But Now comfort measures. (2) Acute exacerbation of CHF (congestive heart failure) Conclusion/Plan: Patient presented with acute respiratory failure with hypoxia. Patient was just discharged from the hospital after admission for pneumonia and CHF exacerbation. He has severe end stage CHF with EF 20-25% and has severe aortic stenosis. Upon returning home he felt well but 6 hours after returning home he became acutely short of air and could not catch his breath. The patient was found to have hypoxia with oxygen saturation of 75% on presentation of EMS and required a nonrebreather to improve his oxygen saturation. On presentation the patient had significant crackles on examination, he had edema in his legs, he had orthopnea, he had increasing infiltrates on chest x-ray consistent with worsening CHF and had an increased BNP of 4600. Patient's acute respiratory failure appeared likely to be secondary to CHF exacerbation in the setting of patient having severe systolic failure with EF of 20-25% and severe aortic stenosis. Plan was IV Lasix 40 mg twice daily Strict I's and O's 2 L fluid restriction Continue metoprolol, Cozaar Start patient on Aldactone Monitor BNP, daily weights Consult palliative care if patient is still hospitalized on Thursday But now comfort measures only. Qualifiers: Congestive heart failure type: systolic Qualified Code(s): I50.23 - Acute on chronic systolic (congestive) heart failure (3) Diabetes Conclusion/Plan: Patient has history of diabetes and on presentation patient's blood sugar is elevated at 162. Patient's most recent hemoglobin A1c is 4.6 which would suggest that he was hypoglycemic in the past however this may have been when he was on medications currently he is not on any medications. Plan was Patient will be placed on low dose sliding scale insulin as needed Check blood glucose before meals at bedtime Check hemoglobin A1c Will stop glucose checks. Comfort measure only. Qualifiers: Diabetes mellitus type: type 2 (4) PVD (peripheral vascular disease) Conclusion/Plan: Patient has history of peripheral arterial disease status post bilateral femoropopliteal bypass and multiple stents in bilateral lower extremities. Symptoms most likely must more severe with more ischemia of limbs bc of the low EF and . Patient is currently on Coumadin and most recent INR was therapeutic at 2.1. The patient does have cyanotic looking feet this is likely secondary to his peripheral arterial disease in combination with severe aortic stenosis and reduced ejection fraction of 20-25% causing a low output state. Plan: Patient was to be continued on his home dose of Coumadin but this will be stopped especially since INR >4 now. (5) History of coronary artery disease Conclusion/Plan: The patient has history of coronary disease status post CABG. Currently the patient is on optimal treatment with aspirin, metoprolol, Cozaar and Lipitor. Patient did not present with chest pain but rather shortness of air. His troponin was mildly abnormal at 0.36 which was slightly elevated from most recent troponin from just 3 days ago of 0.27. The patient's EKG did show some deep ST depressions in the lateral leads which were there on previous EKG. The patient likely does have some ischemia but given his age and comorbid conditions it is unlikely that patient would be a good candidate for any intervention at this time. We are transitioning to comfort measures only.
[2017-09-06] MEDS: SODIUM CHLORIDE FLUSH 0.9% 10 ML SYRINGE IVP SCH ×3 (14:36→22:40)
--- NOTE | 2017-09-07 05:20 | DISCHARGE SUMMARY ---
Discharge Summary Admit Date: 09/05/17 Discharge Date: 09/07/17 (TOD: 05:00) Discharging Provider: Jim Osullivan MD Primary Care Provider: Rio Forman MD Code Status: Do Not Attempt Resuscitation Discharge Disposition: 20 - DIAGNOSES Admission Diagnoses: 1. Acute respiratory failure with hypoxia 2. Acute exacerbation of CHF 3. Diabetes 4. Peripheral vascular disease 5. History of coronary artery disease Discharge Diagnoses with Status of Each Condition: 1. Cardiopulmonary arrest: Time of 05:00 on 09/07/2017: 2. Stroke determined by clinical assessment: 3. Acute exacerbation of CHF: 4. Peripheral vascular disease: 5. History of coronary disease: - HPI History of Present Illness: Patient is an 86-year-old gentleman with a past medical history significant for coronary artery disease status post CABG, peripheral arterial disease status post bilateral femoropopliteal bypass surgery with stents and toe amputation currently on Coumadin, diabetes, hypertension, atrial fibrillation, systolic heart failure with ejection fraction of 20-25% and severe aortic stenosis who presents to the emergency department with a chief complaint of shortness of air. The patient was recently hospitalized at [facility] from 09/03/2017 till 09/05/2017 and was just discharged home this morning. The patient was hospitalized for pneumonia and CHF exacerbation and had a very tenuous course in the hospital where he would develop acute dyspnea and required several doses of IV Lasix. Long discussion was had with patient and his family regarding goals of care and patient did agree to be DNR and was open to a palliative care consult but was not yet ready to go hospice. The patient was discharged home earlier today and what appeared to be stable condition. The patient states that on returning home he felt well for about 6 hours and then states he began feeling of fluttering in his chest and became very short of air. The patient's became very concerned as the patient was breathing very hard and could not catch his breath. The patient states that as his shortness of air became worse and he could not catch his breath he became panicked and asked his to call 911. The patient denies any fevers, chills , increased cough or chest pain. The patient did admit to orthopnea and feeling extremely fatigued. Patient denies any headaches, blurred vision, runny nose, sore throat, nasal congestion, neck pain, difficulty swallowing, abdominal pain, nausea, vomiting, diarrhea, constipation, urinary urgency, urinary frequency, dysuria, joint pain , joint stiffness, joint swelling, back pain, muscle aches, changes in appetite , recent unintentional weight loss or weight gain and he denies any focal neurologic deficits. On the arrival of EMS to the patient's home the patient was in respiratory distress and was saturating at 75% on room air. EMS placed him on a nonrebreather mask and his oxygen saturation did come up to 95%. Per EMS the patient's respiratory rate was in the 50s when he did receive a dose of Lasix 40 mg. On arrival to the emergency department the patient was still quite tachypneic with a respiratory rate in the high 20s-30s. The patient's oxygen saturation had improved significantly as he was up to 100% on 2-3 L. The patient was very tachycardic in the 120s and was borderline hypotensive. The patient appeared quite fatigued and drowsy. His extremities were cold and feet were cyanotic. The patient's lab work revealed a troponin of 0.36 which was mildly elevated from his baseline and an elevated BNP of 4687 which was increased from 3 days earlier. The patient's chest x-ray revealed increasing bibasilar infiltrates and effusions likely secondary to CHF exacerbation. The patient also had crackles on examination and appeared very short of air. The patient was admitted to the medical vora for acute respiratory failure with hypoxia secondary to CHF exacerbation. - HOSPITAL COURSE Hospital Course: After he was admitted for the acute respiratory failure, had a change in mental status and on exam has a stroke. This is a known complication of aortic stenosis , but he already also has documented severe peripheral vascular disease with an EF of 20%. Question to whether this was ischemic or from which is a moot point. His and son were called and although patients CT head was negative he clinically had right sided weakness and had had a stoke. The family decided they would like for us to treat him with only comfort measures. Patient was kept comfortable till he took his last breath at 05:00. Patients remains will be released to [facility]. The patients family was notified as they had gone home at the time of his and our condolences were passed on. - ALLERGIES Allergies/Adverse Reactions: Allergies Allergy/AdvReac Type Severity Reaction Status Date / Time hydrocodone Allergy Rash Verified 09/01/17 11:39 lisinopril Allergy Unknown Verified 09/01/17 11:39 oxycodone Allergy Rash Verified 09/01/17 11:39 Penicillins Allergy Rash Verified 09/01/17 11:39 - MEDICATIONS Home Medications: Ambulatory Orders Medication Instructions Recorded Confirmed Atorvastatin [Lipitor] 10 mg PO QPM 10/07/14 09/05/17 Docusate Sodium 250Mg Capsule 250 mg PO BID 10/07/14 09/05/17 [Colace 250Mg Capsule] Losartan [Cozaar] 25 mg PO DAILY 10/07/14 09/05/17 Metoprolol Tartrate 25 mg PO BID 10/07/14 09/05/17 Morphine Sulfate [Morphine Sulfate 30 mg PO BID 10/07/14 09/05/17 Cr] Omeprazole 20 mg PO DAILY 10/07/14 09/05/17 Warfarin [Coumadin] 5 mg PO MOWEFR 10/07/14 09/05/17 Aspirin EC [Ecotrin] 325 mg PO DAILY 09/01/17 09/05/17 Multivitamin [Multivitamins] 1 each PO DAILY 09/01/17 09/05/17 Multivitamin [Theragran] 1 tab PO DAILY 09/01/17 09/05/17 Senna [Senokot] 17.2 mg PO DAILY 09/01/17 09/05/17 Warfarin [Coumadin] 2.5 mg PO SUTUTHSA 09/01/17 09/05/17 Furosemide [Lasix] 40 mg PO DAILY #30 tablet 09/05/17 09/05/17 - PHYSICAL EXAM AT DISCHARGE Physical Exam Other/Comments: Breath sounds were absent, patient's extremities were cold, there was no heart sounds, corneal reflex was absent, pupils were nonreactive. Patient was pronounced at 5 AM on 09/07/2017. - LABS Result Diagrams: 09/06/17 06:25 09/05/17 20:12 Other Lab Results: Laboratory Results WBC 9.6 x10^3/uL (4.8-10.8) 09/06/17 06:25 RBC 3.71 10^6/uL (4.70-6.10) L 09/06/17 06:25 Hgb 9.5 g/dL (14.0-18.0) L 09/06/17 06:25 Hct 30.8 % (42.0-52.0) L 09/06/17 06:25 MCV 83.0 fL (80.0-94.0) 09/06/17 06:25 MCH 25.6 pg (27.0-31.0) L 09/06/17 06:25 MCHC 30.9 g/dL (32.0-36.0) L 09/06/17 06:25 RDW 16.1 % (12.0-15.0) H 09/06/17 06:25 Plt Count 272 10^3/uL (130-450) 09/06/17 06:25 MPV 8.1 fL (7.4-11.4) 09/06/17 06:25 Neut # 5.8 10^3/uL (1.5-6.6) 09/06/17 06:25 Lymph # 2.7 10^3/uL (1.5-3.5) 09/06/17 06:25 [place] # 0.9 10^3/uL (0.0-1.0) 09/06/17 06:25 Eos # 0.1 10^3/uL (0.0-0.7) 09/06/17 06:25 Baso # 0.1 10^3/uL (0.0-0.1) 09/06/17 06:25 Absolute Nucleated RBC 0.01 x10^3/uL 09/06/17 06:25 Nucleated RBC % 0.1 /100WBC 09/06/17 06:25 PT 49.1 secs (9.9-12.6) H 09/06/17 06:25 INR 4.6 (0.8-1.2) H* 09/06/17 06:25 Anti-Xa Level 0.1 U/mL (-0.7) 09/06/17 13:40 Sodium 133 mmol/L (135-145) L 09/05/17 20:12 Potassium 4.1 mmol/L (3.5-5.0) 09/05/17 20:12 Chloride 94 mmol/L (101-111) L 09/05/17 20:12 Carbon Dioxide 27 mmol/L (21-32) 09/05/17 20:12 Anion Gap 12.0 (6-13) 09/05/17 20:12 BUN 31 mg/dL (6-20) H 09/05/17 20:12 Creatinine 1.2 mg/dL (0.6-1.2) 09/05/17 20:12 Estimated GFR (MDRD) 57 (>89) L 09/05/17 20:12 Glucose 162 mg/dL (70-100) H 09/05/17 20:12 Calcium 9.0 mg/dL (8.5-10.3) 09/05/17 20:12 Total Bilirubin 0.4 mg/dL (0.2-1.0) 09/05/17 20:12 AST 25 IU/L (10-42) 09/05/17 20:12 ALT 15 IU/L (10-60) 09/05/17 20:12 Alkaline Phosphatase 69 IU/L (42-121) 09/05/17 20:12 Troponin I 0.36 ng/mL (<0.49) 09/06/17 06:25 B-Natriuretic Peptide 6802.0 pg/mL (5-100) H 09/06/17 06:25 Total Protein 6.2 g/dL (6.7-8.2) L 09/05/17 20:12 Albumin 3.5 g/dL (3.2-5.5) 09/05/17 20:12 Globulin 2.7 g/dL (2.1-4.2) 09/05/17 20:12 Albumin/Globulin Ratio 1.3 (1.0-2.2) 09/05/17 20:12 Lipase 20 U/L (22-51) L 09/05/17 20:12 - DIAGNOSTIC IMAGING Diagnostic Imaging Results: Final report reviewed Diagnostic Imaging Results Comments: Chest x-ray Impression: Increasing bibasilar infiltrates and effusions CT head Impression: Generalized age-related cortical atrophic changes without evidence of acute intracranial abnormality. - FOLLOW UP Follow Up: Patient's remains were released to [facility]. - TIME SPENT Time Spent in Discharge (Minutes): 35 (FAX TO PCP)
--- NOTE | 2017-09-07 05:28 | Discharge Plan ---
Discharge Plan Disposition: 20 No Smoking: If you smoke, Please STOP! Call for help. Follow-up with: Rio Forman MD [Primary Care Provider] -
[2017-09-07] MEDS ORDERED: WARFARIN 5 MG TABLET PO SCH (14:00)
== END 2017-09-07 05:00 | disposition expired | DRG 291 ==
LOC: EDUNIT# → ED 19:18 → MS2 19:56
PROVIDERS: ADMIT Internal Medicine; ATTEND Internal Medicine
DX: I11.0 Hypertensive heart disease with heart failure (principal); I50.9 Heart failure, unspecified; J96.01 Acute respiratory failure with hypoxia; I63.9 Cerebral infarction, unspecified; G81.90 Hemiplegia, unspecified affecting unspecified side; I50.23 Acute on chronic systolic (congestive) heart failure; I50.84 End stage heart failure; I25.10 Atherosclerotic heart disease of native coronary artery without angina pectoris; I35.0 Nonrheumatic aortic (valve) stenosis; I48.91 Unspecified atrial fibrillation; E11.42 Type 2 diabetes mellitus with diabetic polyneuropathy; Z79.01 Long term (current) use of anticoagulants; Z79.82 Long term (current) use of aspirin; Z79.899 Other long term (current) drug therapy; Z95.1 Presence of aortocoronary bypass graft; Z95.828 Presence of other vascular implants and grafts; Z89.429 Acquired absence of other toe(s), unspecified side
CPT/HCPCS: 36415; 70450; 71010; 80053; 83036; 83690; 83735; 83880; 84484; 85025; 85520; 85610; 93005; 99284; 99285